=== PATIENT | female | born 1955 | race Caucasian/White ===

== ENCOUNTER 2018-10-19 15:55 | Inpatient (IN) | payer MEDICARE, OTHER ==
[2018-10-19] VITALS (8 sets, daily range): BP systolic 84–144; BP diastolic 49–131
[~2018-10-19] VITALS: Ht 160 cm; Wt 45.4 kg
[2018-10-19] MEDS: SODIUM CHLORIDE 0.9% 1000ML 1,000 ML IV SCH ×4 (05:00→19:50)
[2018-10-19] MEDS ORDERED: SODIUM CHLORIDE 0.9% 100 ML IV STA (16:06)
[2018-10-19] MEDS ORDERED: SODIUM CHLORIDE 0.9% 1000ML 1,000 ML IV SCH ×2 (16:15)
[2018-10-19] MEDS ORDERED: CEFEPIME 1GM/NS 0.9% 50 ML 50 ML IV NR (16:30)
[2018-10-19] MEDS ORDERED: VANCOMYCIN 1GM/NS 250 ML 250 ML IV ONE (17:00)
--- NOTE | 2018-10-19 17:07 | Diagnostic Imaging Report ---
EXAM: CHEST SINGLE (PORTABLE) DATE: 10/19/2018 4:06 PM INDICATION: Stomach distention COMPARISON: None FINDINGS: Lines and tubes: There is an apparent right PICC line which is coiled upon itself in the right upper chest, precise location uncertain. Cardiac silhouette is moderately enlarged. There is airspace opacity at the right lung base, likely representing consolidation and small pleural effusion. Upper abdomen unremarkable. No acute bony abnormality. The findings were discussed with Dr. Martinez in the emergency department on 10/19/2018 at 5:00 PM. IMPRESSION: 1. Likely right lower lobe pneumonia and small pleural effusion. 2. Right PICC is coiled in the right upper chest, precise location uncertain. Signed by: Dr. Howard Oh M.D. on 10/19/2018 5:04 PM
--- NOTE | 2018-10-19 17:09 | Diagnostic Imaging Report ---
EXAM: PELVIS AP 1-2 VIEWS DATE: 10/19/2018 4:06 PM INDICATION: Abdominal distention, decubitus ulcer COMPARISON: None FINDINGS: Single AP view of the pelvis shows no displaced fracture or dislocation. However, much of the sacrum is obscured by underpenetration related to overlying soft tissue. Soft tissues unremarkable. IMPRESSION: No acute bony abnormality. The sacrum is a specific site of concern, specific views of the sacrum including a lateral view may be helpful. Signed by: Dr. Howard Oh M.D. on 10/19/2018 5:06 PM
[2018-10-19 17:28] LABS: HEMATOCRIT 27.8 % (34.2-44.1); HEMOGLOBIN 9.1 g/dL (12.0-16.0); LYMPHOCYTES % 2.6 % (18.0-39.1); MEAN CORPUSCULAR HEMOGLOBIN 31.1 pg (28-32); MEAN CORPUSCULAR HGB CONC 32.7 g/dL (31-35); MEAN CORPUSCULAR VOLUME 94.9 fL (81-99); MONOCYTES % 2.2 % (4.4-11.3); NEUTROPHILS % 15.7 % (38.7-80.0); PLATELET COUNT 556 x10e3/uL (140-360); RED BLOOD COUNT 2.93 x10e6/uL (3.6-5.1); RED CELL DISTRIBUTION WIDTH 14.1 % (11.7-14.4)
--- NOTE | 2018-10-19 17:30 | NUR ---
PT NOTED TO HAVE B/L DRESSINGS TO BUTTOCKS FOR STAGE 4 PRESSURE ULCER, PT TURNED ON SIDE FOR COMFORT AND PRESSURE ULCER PREVENTION
--- NOTE | 2018-10-19 17:30 | NUR ---
Corinne rudd in ED - 10/19/18 at 2108 by ILIANA PT NOTED TO HAVE B/L DRESSINGS TO BUTTOCKS FOR STAGE 1 PRESSURE ULCER, PT TURNED ON SIDE FOR COMFORT AND PRESSURE ULCER PREVENTION.
[2018-10-19 17:42] LABS: SODIUM 128 mmol/L (136-145)
[2018-10-19 17:43] LABS: ALANINE AMINOTRANSFERASE 11 IU/L (0-55); ALBUMIN 2.1 g/dL (3.5-5.0); ALBUMIN/GLOBULIN RATIO 0.4 (0.8-2.0); ALKALINE PHOSPHATASE 159 IU/L (40-150); ANION GAP 18.6 mmol/L (8-16); BLOOD UREA NITROGEN 112 mg/dL (7-26); BUN/CREATININE RATIO 39 (6-25); CALCIUM 8.2 mg/dL (8.4-10.2); CARBON DIOXIDE 21 mmol/L (22-29); CHLORIDE 96 mmol/L (98-107); CREATINE KINASE 57 IU/L (29-168); CREATININE, SERUM 2.87 mg/dL (0.57-1.11); EST GLOMERULAR FILTRATION RATE 17 ML/MIN (60-); GLUCOSE 215 mg/dL (74-118)
[2018-10-19 17:45] LABS: POTASSIUM 7.6 mmol/L (3.5-5.1)
[2018-10-19] MEDS ORDERED: DEXTROSE 50% SYRINGE 50 ML IV STA (17:47)
[2018-10-19] MEDS ORDERED: ALBUTEROL SULF 0.083% NEB SOLN 3 ML NEB NEB STA (17:49)
[2018-10-19] MEDS ORDERED: CALCIUM GLUCONATE 10% INJ 0.465 MEQ/ML VIAL ONE (17:49)
[2018-10-19] MEDS ORDERED: DEXTROSE 50% SYRINGE 50 ML IV ONE (17:50)
[2018-10-19] MEDS ORDERED: SODIUM BICARBONATE 8.4% SYRING 50 ML ONE (17:50)
[2018-10-19] MEDS ORDERED: INSULIN REGULAR, HUMAN 100 UNIT/1 ML 3ML VIAL ONE (17:50)
[2018-10-19] MEDS ORDERED: SOD POLYSTYRENE SULFONATE SUSP 15 GM/60 ML BTL ONE (17:51)
[2018-10-19] MEDS ORDERED: SODIUM CHLORIDE 0.9% 100 ML ONE (17:51)
[2018-10-19 17:55] LABS: CLARITY,URINE CLOUDY (CLEAR); COLOR,URINE YELLOW (YELLOW); KETONES,URINE NEGATIVE (NEGATIVE); LEUKOCYTE ESTERASE ,URINE TRACE (NEGATIVE); NITRITE,URINE NEGATIVE (NEGATIVE); PROTEIN,URINE DIPSTICK NEGATIVE (NEGATIVE); URINE UROBILINOGEN 0.2 mg/dL (0.2 - 1)
[2018-10-19 17:56] LABS: BILIRUBIN,URINE NEGATIVE (NEGATIVE)
[2018-10-19 17:58] LABS: LIPASE < 4 U/L (8-78)
[2018-10-19] MEDS ORDERED: INSULIN REGULAR, HUMAN 100 UNIT/1 ML 3ML VIAL IV ONE (18:00)
[2018-10-19] MEDS ORDERED: CALCIUM GLUCONATE 10% INJ 4.65 MEQ in SODIUM CHLORIDE 0.9% 50ML 50 ML IV ONE (18:00)
[2018-10-19 18:01] LABS: BACTERIA,URINE MODERATE /HPF; EPITHELIAL CELLS,URINE MODERATE /LPF; RENAL EPITHELIAL CELLS,URINE FEW; WBC,URINE (MAN) 0-5 /HPF (0-5)
[2018-10-19] MEDS ORDERED: CEFEPIME HCL 1 GM VIAL IV SCH (18:15)
[2018-10-19] MEDS ORDERED: SOD POLYSTYRENE SULFONATE SUSP 15 GM/60 ML BTL PO NR (18:15)
--- NOTE | 2018-10-19 18:45 | NUR ---
PT ABD DISTENTION, FIRM STATES PAIN AND NOT VOIDED SINCE YESTERDAY. MD NOTIFIED AND WANTED GARDNER IMMEDIATELY. STERILE PROCEDURE FOLLOWED AND FORMED CHARTED AND CLAMPED OFF AT ONE LITER OUTPUT; PT STATES RELIEF, BROWN BEER COLORED URINE, LABIA MAJORA AND MINORA ENGORGED AND MD NOTIFIED. VSS AND ALLOWED REMAINDER OF URINE TO FOLLOW AND TOTAL OUTPT 1200CC. PT PREVIOUS STRAIGHT CATH FOR UA SAMPLE ON ARRIVAL WITH PT AMS AND OUTPT WAS 300CC AT THAT TIME. ONCE DISTENTION NOTED, ORDERED GARDNER. ABD SIZE DECREASED BY HALF. AWARE.
[2018-10-19] MEDS: VANCOMYCIN 1GM/NS 250 ML 250 ML IV SCH (19:41)
[2018-10-19] MEDS: CEFEPIME 1GM/NS 0.9% 50 ML 50 ML IV SCH (19:50)
--- NOTE | 2018-10-19 20:06 | Diagnostic Imaging Report ---
Examination: Single AP view of the chest. COMPARISON: None. INDICATION: Line placement DISCUSSION: Lines/tubes: Right IJ catheter with tip overlying the mid right atrium Lungs: Right pleural effusion with adjacent atelectasis/pneumonia. Central pulmonary venous congestion. Heart and mediastinum: The heart and the mediastinum are unremarkable. Bones and soft tissues: No acute bony abnormalities. IMPRESSION: Right PICC line overlying the mid right atrium Stable right pleural effusion with adjacent atelectasis/pneumonia Signed by: Dr. Odell Starr M.D. on 10/19/2018 8:03 PM
--- NOTE | 2018-10-19 20:50 | Diagnostic Imaging Report ---
Examination: Single AP view of the chest. COMPARISON: 10/19/2018 INDICATION: Check line DISCUSSION: Lines/tubes: Central venous catheter with tip overlying the low SVC. Lungs: Stable right effusion with adjacent atelectasis/pneumonia. Central venous congestion. Heart and mediastinum: The heart and the mediastinum are unremarkable. Bones and soft tissues: No acute bony abnormalities. IMPRESSION: 1. Central venous IJ catheter with tip overlying the low SVC Signed by: Dr. Odell Starr M.D. on 10/19/2018 8:47 PM
[2018-10-19] MEDS ORDERED: NOREPINEPHRINE 8 MG/D5W 250 ML 250 ML IV PRN (21:00)
[2018-10-19] MEDS ORDERED: BACTRIM DS TAB1 EACH PO (21:40)
[2018-10-19] MEDS ORDERED: ACETAMINOPHEN325 M1 PO (21:40)
[2018-10-19] MEDS ORDERED: ASPIRIN81 MG PO (21:40)
[2018-10-19] MEDS ORDERED: AMLODIPINE BESY10 MG PO (21:40)
--- NOTE | 2018-10-19 21:40 | NUR ---
Received to 191 from ER. Placed on EKG, pulse ox and NBP for monitoring. Pt confused and poor historian. Admission history done by medical record from [facility] (Formerly [facility]). Cleaned for smear bowel movement. Mary drsgs applied to sacrum unstageable ulcer and left hip stage 3 decub. IV NS @ 125 ml/hr.
[2018-10-19] MEDS ORDERED: LANTUS 3ML100 UNITS/ SQ (21:42)
[2018-10-19] MEDS ORDERED: CARVEDILOL3.125 MG PO (21:42)
[2018-10-19 21:52] LABS: ABG HCO3 21 mmol/L (23-28); ABG PCO2 41 mmHg (41-51); ABG PH 7.32 (7.31-7.41); ABG PO2 58 mmHg (80-105)
[2018-10-19] MEDS ORDERED: SENNA LAX8.6 MG PO (21:53)
[2018-10-19] MEDS ORDERED: RISPERIDONE1 MG PO (21:53)
[2018-10-19] MEDS ORDERED: ASCORBIC ACID500 MG PO (21:53)
[2018-10-19] MEDS ORDERED: LACTULOSE20 GM/30 M PO (21:53)
[2018-10-19] MEDS ORDERED: NOVOLOG100 UNIT/1 SQ (21:53)
[2018-10-19] MEDS ORDERED: VANCOMYCIN1 GM/250 M IV (21:53)
[2018-10-19] MEDS ORDERED: LYRICA50 MG PO (21:53)
[2018-10-19] MEDS ORDERED: MAGNESIUM OXID400 MG PO (21:53)
[2018-10-19] MEDS ORDERED: XARELTO10 MG PO (21:53)
[2018-10-19] MEDS ORDERED: ULTRAM50 MG PO (21:53)
--- NOTE | 2018-10-19 23:45 | NUR ---
Attempted to get vaccine history without success. Pt unsure. Attempted to call shelter without success.
[2018-10-20] VITALS (28 sets, daily range): BP systolic 83–120; BP diastolic 49–74
[2018-10-20] MEDS ORDERED: SODIUM CHLORIDE 0.9% 1000ML 1,000 ML ONE (04:28)
[2018-10-20] MEDS: SODIUM CHLORIDE 0.9% 1000ML 1,000 ML IV SCH ×3 (05:00→16:36)
--- NOTE | 2018-10-20 05:00 | NUR ---
More alert now. Able to answer all neuro questions. Dr. Case here. Awaiting lab results.
[2018-10-20 05:40] LABS: BASOPHILS % 0.1 % (0.0-1.0); HEMOGLOBIN 8.4 g/dL (12.0-16.0); LYMPHOCYTES # (AUTO) 2.6 (1.0-3.2); LYMPHOCYTES % 14.2 % (18.0-39.1); MEAN CORPUSCULAR HEMOGLOBIN 31.9 pg (28-32); MEAN CORPUSCULAR HGB CONC 32.3 g/dL (31-35); MEAN CORPUSCULAR VOLUME 98.9 fL (81-99); MONOCYTES # (AUTO) 1.7 (0.2-0.8); MONOCYTES % 9.5 % (4.4-11.3); NEUTROPHILS # (AUTO) 13.7 (2.1-6.9); NEUTROPHILS % 75.5 % (38.7-80.0); PLATELET COUNT 537 x10e3/uL (140-360); RED BLOOD COUNT 2.63 x10e6/uL (3.6-5.1); RED CELL DISTRIBUTION WIDTH 14.5 % (11.7-14.4)
[2018-10-20 07:18] LABS: ALBUMIN 1.8 g/dL (3.5-5.0); ALBUMIN/GLOBULIN RATIO 0.4 (0.8-2.0); CALCIUM 7.9 mg/dL (8.4-10.2); CREATININE, SERUM 1.95 mg/dL (0.57-1.11); MAGNESIUM 2.4 MG/DL (1.3-2.1)
[2018-10-20 07:49] LABS: ANION GAP 16.9 mmol/L (8-16)
[2018-10-20 07:53] LABS: POTASSIUM 5.9 mmol/L (3.5-5.1)
[2018-10-20] MEDS ORDERED: DEXTROSE 50% SYRINGE 50 ML IV PRN (08:00)
[2018-10-20] MEDS: VANCOMYCIN 1GM/NS 250 ML 250 ML IV SCH (08:03)
[2018-10-20] MEDS: CEFEPIME 1GM/NS 0.9% 50 ML 50 ML IV SCH (08:15)
[2018-10-20] MEDS ORDERED: SOD POLYSTYRENE SULFONATE SUSP 15 GM/60 ML BTL PO ONE (08:30)
--- NOTE | 2018-10-20 09:16 | NUR ---
WOUND CARE CONSULTATION INITIAL EVALUATION Patient admitted from [facility] to ER for Distended Abdomen and altered mental status. DX: Sepsis, AMS LABS: WBC 18.2 HGB8.4 HCT26 NEUT%75.[id number] Shook on case for IV ABX Management. X-ray- Pelvis - Inconclusive. -@ [facility]- Bone Biopsy performed and was + for Osteomyelitis. Wound Care Consulted For Sacral Ulcer and Left Hip Ulcers. PATIENT VISIT: Patient is pleasantly confused. Attempts to assist with redirection. Maximiliano Score = 12 Strict PUP Active Alternating Pressure Air Mattress in place and set to current patient weight - Distended Abdomen with Labia Swelling. - Sacral full thickness ulceration and palpable bone. Periwound edges are friable and denuded toward rectum. - Indwelling Avendano catheter in place - Left Hip - Partial thickness ulcer with 90 granulation and 10% slough and fibrin. - Mid Lower back- annular shaped purple non-blanching ulcer, detached skin with boggy base. - Bilateral Heels intact. - Onychogryphotic nails to bilateral hallux. - No Pressure ulcers to bilateral feet. IMPRESSION: - Left Hip- Stage III -Pressure Ulcer- Present On Admission - Sacral - Stage IV- Pressure Ulcer- Present On Admission. - Lumbar Mid Spine- Deep Tissue Injury- Present On Admission. RECOMMENDATION: 1. Left Hip- Stage III -Pressure Ulcer- Present On Admission -Cleanse wound with NS and 4x4 gauze - Apply Santyl and Cover with Pleated Xeroform Gauze and Cover with Allevyn Foam Sacrum Dressing Daily. 2. Sacral - Stage IV- Pressure Ulcer- Present On Admission.\ -Cleanse wound with NS and 4x4 gauze - Apply Santyl and Cover with Pleated Xeroform Gauze and Cover with Allevyn Foam Sacrum Dressing Daily. 3. Lumbar Mid Spine- Deep Tissue Injury- Present On Admission. -Cleanse wound with NS and 4x4 gauze - Apply Venelex and Cover with Allevyn Foam Sacrum Dressing Daily - Continue Alternating Pressure Air Mattress and settings according to patient current weight. - Bilateral Heel Protectors / Offload Heels with Pillows. - Turn and Reposition Every 2 Hours using turning clock schedule. DISCHARGE BARRIERS: - Back to [facility] with IV ABX -VS- SNF - VS LTAC. Thank you for consulting with Wound Care. Addendum: 10/20/18 at 0940 by Trino Contreras RN Amended: Marshal added.
[2018-10-20] MEDS: INSULIN LISPRO 100 UNIT/1 ML 3ML VIAL SQ SCH ×3 (12:28→21:27)
--- NOTE | 2018-10-20 13:42 | NUR ---
Nutrition Intervention Note RD Recommendation(s) for Physician: -Rec ADA 1800 as medically appropriate -Rec Glucerna BID to promote protein-calorie intake -Rec MVi w/minerals, Vit C 550mg BID, Zinc sulfate 220mg once a day for 10 days (to support wound healing) -Rec CT abdomen for abdominal distention Plan of Care: RD following, monitoring for tolerance and adequacy, ONS rec Nutrition reason for involvement: Nutrition Risk Trigger MST RD Assessment 10/20 Chart reviewed. 87yo F, who was admitted from snf for AMS. Pt was discussed during rounds. Kalexate was given for elevated potassium level. Wound care following for pressure wound. Renal function has improved. No on pressor. +NS and abx. Unable to obtain hx from pt due to AMS. Pt has some severe signs of muscle and fat loss per observation. Per RN Rama, pt was eating good this AM with ~75% meal intake. RD paged Dr. Case for orders at 1342. Will continue to monitor and follow. Principal Problems/Diagnoses: sepsis, AMS, stomach distention PMH: No H&P in chart GI: abdomen round, distended, tender, rigid, flatus present Skin: - Left Hip- Stage III -Pressure Ulcer- Present On Admission - Sacral - Stage IV- Pressure Ulcer- Present On Admission. - Lumbar Mid Spine- Deep Tissue Injury- Present On Admission. Labs: (10/20) Na 135 L, K 5.9 H, BUN 90 H, Creat 1.95 H, Glucose 192 212 H Meds: insulin, NaCl Ht: 63in Wt: 98lb BMI: 17.4kg/m2 IBW: 115lb Malnutrition Evaluation (10/20) The patient does not meet criteria for a specified degree of malnutrition at this time. Will re-evaluate at follow-up as appropriate. Energy intake: N/A Weight loss: N/A Fat loss: Severe hollow orbital region, protrusion of clavicle Muscle loss: Severe protrusion of clavicle and acromion process, depression of temporal Supporting Evidence: Fluid accumulation: unable to evaluate Functional Status: unable to evaluate Nutrition Prescription (Diet Order): cardiac diet Estimated Nutritional Needs: Calories: 1350 1575kcal(30-35kcal/kg/d) Weight used: CBW Protein: 68 90g (1.5-2g/kg/d) Weight used: CBW Diet Adequacy: Meeting calorie needs, Not meeting protein needs Diet Education Needs Assessment: Diet education indicated, but patient not appropriate for education at this time. Nutrition Care Level: high Nutrition Diagnosis: Increased protein needs related to altered skin integrity as evidenced by stage III L hip ulcer, stage IV sacral ulcer, and DTI on lumbar spine. Goal: Patient will meet 75-100% of estimated needs by follow up Progress: N/A Interventions: Carb-modified diet, Commercial beverage, Multivitamin/mineral supplement therapy, Collaboration with other providers Monitoring/Evaluation: Total energy intake, Total protein intake, Modified diet, Liquid supplement, Weight change, Labs Signed: Georgina Conroy MS, RD, LD
--- NOTE | 2018-10-20 13:50 | NUR ---
Telephone orders received from Dr. Case for diet change and MVi/mineral.
[2018-10-20] MEDS: ASCORBIC ACID 500 MG TAB PO SCH (16:36)
[2018-10-20] MEDS: MEROPENEM 500MG/ NS 50ML 50 ML IV SCH (16:36)
[2018-10-21] VITALS (29 sets, daily range): BP systolic 90–132; BP diastolic 55–69
[2018-10-21] MEDS: SODIUM CHLORIDE 0.9% 1000ML 1,000 ML IV SCH ×4 (02:50→23:03)
--- NOTE | 2018-10-21 05:46 | Diagnostic Imaging Report ---
Abdomen/KUB INDICATION: ^DISTENDED ABDOMEN ^[id number] ^0435 ^Y COMPARISON: Chest x-ray 10/19/2018. FINDINGS: Portable, supine image obtained at 0435 hours. Medical Devices: Multiple sutures across the upper abdomen Bowel: Multiple dilated small bowel loops measuring up to 3.9 cm. No pneumatosis. Mild burden of stool in the right colon and transverse colon. Free air: None Calcifications: None over the renal shadows or along the expected course of the ureters Organomegaly: None Lung bases: Small right pleural effusion Bones: Degenerative changes. Multiple untreated compression deformities of the thoracic and lumbar spine. IMPRESSION: Multiple dilated small bowel loops suggestive of partial small bowel obstruction. Signed by: Dr. Juanita Zavala MD on 10/21/2018 5:43 AM
[2018-10-21 06:25] LABS: BASOPHILS % 0.2 % (0.0-1.0); EOSINOPHILS # (AUTO) 0.1 (0.0-0.4); HEMATOCRIT 25.2 % (34.2-44.1); LYMPHOCYTES % 37.3 % (18.0-39.1); MEAN CORPUSCULAR HEMOGLOBIN 30.5 pg (28-32); MEAN CORPUSCULAR HGB CONC 31.7 g/dL (31-35); MEAN CORPUSCULAR VOLUME 96.2 fL (81-99); MONOCYTES # (AUTO) 1.4 (0.2-0.8); MONOCYTES % 10.8 % (4.4-11.3); NEUTROPHILS # (AUTO) 6.6 (2.1-6.9); NEUTROPHILS % 49.9 % (38.7-80.0); PLATELET COUNT 551 x10e3/uL (140-360); RED BLOOD COUNT 2.62 x10e6/uL (3.6-5.1); RED CELL DISTRIBUTION WIDTH 14.5 % (11.7-14.4)
[2018-10-21 06:45] LABS: ALBUMIN 1.6 g/dL (3.5-5.0); ALBUMIN/GLOBULIN RATIO 0.4 (0.8-2.0); ANION GAP 10.4 mmol/L (8-16); CALCIUM 7.8 mg/dL (8.4-10.2); CREATININE, SERUM 0.99 mg/dL (0.57-1.11); POTASSIUM 4.4 mmol/L (3.5-5.1)
[2018-10-21] MEDS: INSULIN LISPRO 100 UNIT/1 ML 3ML VIAL SQ SCH ×4 (07:14→21:16)
[2018-10-21] MEDS: ASCORBIC ACID 500 MG TAB PO SCH ×2 (08:39→16:39)
[2018-10-21] MEDS: BALSAM PERU/CASTOR OIL 60 GM OINT...G. TP SCH (08:39)
[2018-10-21] MEDS: ZINC SULFATE 220 MG CAP PO SCH (08:39)
[2018-10-21] MEDS: RIVAROXABAN 15 MG TABLET PO SCH ×2 (08:39→16:39)
[2018-10-21] MEDS: MULTIVITAMINS/MINERALS TAB PO SCH (08:39)
[2018-10-21] MEDS: MEROPENEM 500MG/ NS 50ML 50 ML IV SCH (08:39)
[2018-10-21] MEDS: COLLAGENASE 5 GM TUBE TOP SCH (08:39)
[2018-10-21] MEDS: CEFEPIME 1GM/NS 0.9% 50 ML 50 ML IV SCH ×2 (11:41→23:02)
[2018-10-21] MEDS ORDERED: MEROPENEM 1GM 0 ML IV ONE (11:47)
[2018-10-21] MEDS ORDERED: CEFTRIAXONE SOD 1 GM/NS 50 ML 50 ML IV ONE (11:48)
[2018-10-21] MEDS: METRONIDAZOLE 500MG/NS 100ML 100 ML IV SCH ×2 (13:25→21:18)
[2018-10-21] MEDS ORDERED: MEROPENEM 500MG 500 MG in SODIUM CHLORIDE 0.9% 50ML 50 ML IV SCH (14:00)
[2018-10-21] MEDS ORDERED: LORAZEPAM INJ 2 MG/ML VIAL IV PRN (20:30)
[2018-10-21] MEDS: RISPERIDONE 1 MG TAB PO SCH (21:15)
--- NOTE | 2018-10-21 22:30 | NUR ---
Pt received from ICU. Pt A&O 1-2 and in no apparent distress. Pt on room air and tele. All safety measures ensured, rich alarm on, and pt call rich near. Pt encouraged to use call rich for assistance.
--- NOTE | 2018-10-21 22:38 | NUR ---
Pt transferred to room 213. Report called to Eunice MISTRY. No complications noted upon transfer. Telemetry unit #12. Lights on, bed in lowest, side rail x2, bed alarm set, call light in reach, and oriented to call nurse for assist. Received by Janette MISTRY charge nurse.
[2018-10-22] VITALS (7 sets, daily range): BP systolic 107–125; BP diastolic 56–67
--- NOTE | 2018-10-22 04:00 | NUR ---
Pt given broth and water per request. Pt tolerated well.
[2018-10-22] MEDS: METRONIDAZOLE 500MG/NS 100ML 100 ML IV SCH ×3 (05:03→22:02)
[2018-10-22 06:05] LABS: BASOPHILS % 0.1 % (0.0-1.0); EOSINOPHILS # (AUTO) 0.3 (0.0-0.4); EOSINOPHILS % 1.8 % (0.0-6.0); HEMATOCRIT 25.6 % (34.2-44.1); HEMOGLOBIN 7.9 g/dL (12.0-16.0); LYMPHOCYTES # (AUTO) 5.3 (1.0-3.2); LYMPHOCYTES % 33.3 % (18.0-39.1); MEAN CORPUSCULAR HEMOGLOBIN 30.5 pg (28-32); MEAN CORPUSCULAR HGB CONC 30.9 g/dL (31-35); MEAN CORPUSCULAR VOLUME 98.8 fL (81-99); MONOCYTES % 12.9 % (4.4-11.3); NEUTROPHILS # (AUTO) 8.1 (2.1-6.9); NEUTROPHILS % 51.1 % (38.7-80.0); PLATELET COUNT 529 x10e3/uL (140-360); RED BLOOD COUNT 2.59 x10e6/uL (3.6-5.1); RED CELL DISTRIBUTION WIDTH 14.6 % (11.7-14.4)
[2018-10-22 06:27] LABS: ANION GAP 10.8 mmol/L (8-16); BLOOD UREA NITROGEN 43 mg/dL (7-26); BUN/CREATININE RATIO 61 (6-25); CALCIUM 7.7 mg/dL (8.4-10.2); CARBON DIOXIDE 20 mmol/L (22-29); CHLORIDE 111 mmol/L (98-107); EST GLOMERULAR FILTRATION RATE > 60 ML/MIN (60-); GLUCOSE 171 mg/dL (74-118); POTASSIUM 4.8 mmol/L (3.5-5.1); SODIUM 137 mmol/L (136-145)
--- NOTE | 2018-10-22 07:15 | NUR ---
RCD PT AT BED PT IS ALERT AND CONFUSED PT CRYING ON BED NO SIGNS OF ANY DISTRESS NOTED GARDNER DRAINING BY GRAVITY IV PATENT BED LOW AND LOCKED CALL LIGHT IN REACH
[2018-10-22] MEDS: INSULIN LISPRO 100 UNIT/1 ML 3ML VIAL SQ SCH ×4 (07:30→21:00)
[2018-10-22] MEDS: ASCORBIC ACID 500 MG TAB PO SCH ×2 (09:00→17:00)
[2018-10-22] MEDS: BALSAM PERU/CASTOR OIL 60 GM OINT...G. TP SCH (09:00)
[2018-10-22] MEDS: ZINC SULFATE 220 MG CAP PO SCH (09:00)
[2018-10-22] MEDS: RIVAROXABAN 15 MG TABLET PO SCH ×2 (09:00→17:00)
[2018-10-22] MEDS: MULTIVITAMINS/MINERALS TAB PO SCH (09:00)
[2018-10-22] MEDS: COLLAGENASE 5 GM TUBE TOP SCH (09:00)
[2018-10-22] MEDS: RISPERIDONE 1 MG TAB PO SCH ×3 (09:00→22:02)
--- NOTE | 2018-10-22 10:00 | NUR ---
NOTIFIED SARAH GARCIA PT HAVE ESBL AND MDRO IN THE WOUND
[2018-10-22 10:05] LABS: BAND NEUTROPHILS % (MANUAL) 5 %; LYMPHOCYTES % (MANUAL) 38 % (19-48); MONOCYTES % (MANUAL) 9 % (3.4-9.0); NEUTROPHILS % (MANUAL) 48 % (40-74)
[2018-10-22 10:06] LABS: RBC MORPHOLOGY COMMENT ABNORMAL
[2018-10-22 10:07] LABS: ANISOCYTOSIS S; HOWELL-JOLLY BODIES FEW; POIKILOCYTOSIS S
[2018-10-22] MEDS: SODIUM CHLORIDE 0.9% 1000ML 1,000 ML IV SCH ×2 (10:07→18:07)
[2018-10-22 10:08] LABS: PLATELET ESTIMATE SLIGHTLY INCREASED; PLATELET MORPHOLOGY COMMENT FEW GIANT
--- NOTE | 2018-10-22 11:00 | NUR ---
WHILE ASSESSMENT OF THE PT ABDOMEN SHOWS DISTENDED NO BOWEL SOUNDS PT ON ADA DIET NOTIFIED THE CHARGE NURSE SHE SAW THE PT AND PUT THE PT NPO AND PAGED DR Carol HARTMAN TO NOTIFY THAT
[2018-10-22] MEDS: CEFEPIME 1GM/NS 0.9% 50 ML 50 ML IV SCH (11:30)
--- NOTE | 2018-10-22 15:15 | NUR ---
NOTIFIED THE CHARGE NURSE HE DIDN'T CALL BACK SHE GAVE THE CELL NUMBER
--- NOTE | 2018-10-22 15:30 | NUR ---
AGAIN PAGED DR Carol HARTMAN IN CELL PHONE NUMBER THIS NUMBER WAS IN DIAGNOSTIC CENTRE
--- NOTE | 2018-10-22 16:10 | NUR ---
AGAIN PAGED TO DR Carol HARTMAN AND TALKED TO ANSWERING SERVICE
--- NOTE | 2018-10-22 17:22 | NUR ---
DR Carol HARTMAN RETURNED CALL GOT NEW ORDERS
--- NOTE | 2018-10-22 18:00 | NUR ---
14FR NG TUBE INSERTED IN TO LT NOSTRIL WAITING FOR KUB REPORT FOR THE POSITION
--- NOTE | 2018-10-22 18:42 | NUR ---
PT RESTING ON BED BED SIDE REPORT GIVEN TO ONCOMING NURSE
--- NOTE | 2018-10-22 18:50 | Diagnostic Imaging Report ---
Exam: KUB - 1 view Clinical History: Evaluate NG tube placement Comparison: KUB 10/21/2018. Findings: Interval placement of NG tube, the tip terminates in the stomach. However, the side-port is near the GE junction. Persistent mildly dilated small bowel loops with air seen in non-dilated colonic loops. Surgical clips are present in the upper abdomen. Small right pleural effusion with subsegmental atelectasis in the lower lungs bilaterally. Again noted are multiple compression deformities of the thoracic and lumbar spine. Diffuse osteopenia. Impression: NG tube terminates in the stomach, the side-port is near the GE junction. Suggest advancement by approximately 4 cm. Findings of partial small bowel obstruction. Small right pleural effusion with subsegmental atelectasis in the bilateral lower lobes. Signed by: Dr. Priscilla Pacheco MD on 10/22/2018 6:47 PM
--- NOTE | 2018-10-22 19:00 | NUR ---
GOT THE KUB REPORT FIXED NG TUBE IN POSITION AND WORKING AND CONNECTED TO LOW INTERMITTENT SUCTION
--- NOTE | 2018-10-22 19:24 | NUR ---
Report received and walking rounds complete. Pt resting in bed and in no apparent distress. Pt has NG tube to low int. suction. All safety measures ensured, bed alarm on, and call rich near.
--- NOTE | 2018-10-22 20:32 | NUR ---
NG tube irrigated. Pt tolerated well.
--- NOTE | 2018-10-22 23:01 | NUR ---
Pt has NG tube and continues to be non compliant with keeping her head elevated. Pt yells when turned and states that she doesn't want to have the head of her bed elevated. I explained to pt that she needs to have her head of bed elevated and have her neck center and straight to prevent aspiration and have NG tube work properly.
[2018-10-23] VITALS: BP 129/58
[2018-10-23] MEDS: CEFEPIME 1GM/NS 0.9% 50 ML 50 ML IV SCH ×3 (00:08→23:30)
--- NOTE | 2018-10-23 00:10 | NUR ---
Pt given full bed bath, tolerated well. NGT irrigated as well.
[2018-10-23] MEDS ORDERED: BISACODYL 10 MG SUPP PR ONE (00:15)
--- NOTE | 2018-10-23 00:47 | NUR ---
Dr. Carol Gale rounding; Orders given for pt to get Dulcolax 20mg suppository now and if no BM in 30-45mins then fleets enema. Before insertion of suppository pt was impacted and reported finding to .
--- NOTE | 2018-10-23 01:05 | NUR ---
Pt continues to ask for water and ice chips. Explained to pt that she cant have any due to having the NG tube and being NPO. Pt also asks for pain meds. Pt is confused and has no orders for pain meds.
--- NOTE | 2018-10-23 01:50 | NUR ---
Pt had small smear BM. Continued to perform some disimpaction. Will see if pt has another BM and if not will administer fleets enema to further assist with BM.
--- NOTE | 2018-10-23 02:25 | NUR ---
Pt still continues to lean her head to the side and move her head from pillows and wedges underneath her to elevated her head. Will continue to monitor pt and correct positioning as needed to prevent aspiration and NG tube malfunctioning.
--- NOTE | 2018-10-23 03:50 | NUR ---
Pt had another small smear BM. Pt states she feels "too weak" to push for BM. Told pt we would need to give her enema and disimpacted her and she yelled and cried that she "didn't want to have it done". Explained to pt that she would need to have it done so that her stomach would feel better. Pt stated she wants to rest and that she will try to go on her own. Advised pt I will check her again for BM and if no BM, I will need to administer enema. Pt verbalized understanding.
[2018-10-23 04:00] VITALS: BP 126/66
--- NOTE | 2018-10-23 04:15 | NUR ---
Pt NG tube irrigated. Pt tolerated well. Drainage properly flowing.
[2018-10-23] MEDS: SODIUM CHLORIDE 0.9% 1000ML 1,000 ML IV SCH ×3 (05:18→22:00)
[2018-10-23] MEDS ORDERED: SOD PHOSPHATE/SOD BIPHOSPHATE ENEMA 132 ML BTL PR ONE (06:00)
[2018-10-23] MEDS: METRONIDAZOLE 500MG/NS 100ML 100 ML IV SCH ×3 (06:07→21:49)
--- NOTE | 2018-10-23 06:08 | NUR ---
Pt had small soft BM but still slight impacted. Enema given and pt tolerated well.
[2018-10-23 06:15] LABS: BASOPHILS % 0.2 % (0.0-1.0); EOSINOPHILS # (AUTO) 0.3 (0.0-0.4); EOSINOPHILS % 1.9 % (0.0-6.0); HEMATOCRIT 24.9 % (34.2-44.1); HEMOGLOBIN 7.9 g/dL (12.0-16.0); LYMPHOCYTES # (AUTO) 4.6 (1.0-3.2); LYMPHOCYTES % 28.9 % (18.0-39.1); MEAN CORPUSCULAR HEMOGLOBIN 31.1 pg (28-32); MEAN CORPUSCULAR HGB CONC 31.7 g/dL (31-35); MONOCYTES # (AUTO) 1.8 (0.2-0.8); MONOCYTES % 11.1 % (4.4-11.3); PLATELET COUNT 541 x10e3/uL (140-360); RED BLOOD COUNT 2.54 x10e6/uL (3.6-5.1); RED CELL DISTRIBUTION WIDTH 14.7 % (11.7-14.4)
[2018-10-23 06:25] LABS: INR 1.35; PROTHROMBIN TIME 17.3 seconds (11.9-14.5)
[2018-10-23 06:34] LABS: ALANINE AMINOTRANSFERASE 9 IU/L (0-55); ALBUMIN 1.7 g/dL (3.5-5.0); ALBUMIN/GLOBULIN RATIO 0.5 (0.8-2.0); ALKALINE PHOSPHATASE 123 IU/L (40-150); ANION GAP 13.2 mmol/L (8-16); BLOOD UREA NITROGEN 29 mg/dL (7-26); BUN/CREATININE RATIO 50 (6-25); CARBON DIOXIDE 18 mmol/L (22-29); CHLORIDE 116 mmol/L (98-107); CREATININE, SERUM 0.58 mg/dL (0.57-1.11); EST GLOMERULAR FILTRATION RATE > 60 ML/MIN (60-); GLUCOSE 86 mg/dL (74-118); POTASSIUM 4.2 mmol/L (3.5-5.1); SODIUM 143 mmol/L (136-145)
--- NOTE | 2018-10-23 07:18 | Diagnostic Imaging Report ---
Exam: Abdominal film Clinical History: Distended abdomen Comparison: 10/22/2018 DISCUSSION: The patient is rotated to the right. When accounting for differences in technique and positioning, stable position of enteric tube with the tip projecting over the proximal stomach. Interval increased gaseous distention of the small bowel, with the largest loop now measuring approximately 4.2 cm. Gas is again noted in the large bowel and rectum. Multiple abdominal surgical clips and radiopaque suture material. No mass effect or organomegaly. Osteopenia with multilevel degenerative disc changes of the thoracolumbar spine. IMPRESSION: Stable position of enteric tube. As before, the side port projects over the GE junction and advancement is suggested. Slight interval progression of findings suggestive of partial small bowel obstruction. Lung bases are suboptimally evaluated on the current study secondary to patient rotation. Signed by: Dr. Chadwick Maqruez M.D. on 10/23/2018 7:15 AM
[2018-10-23] MEDS: INSULIN LISPRO 100 UNIT/1 ML 3ML VIAL SQ SCH ×4 (07:30→21:00)
[2018-10-23 08:20] VITALS: BP 115/52
[2018-10-23 08:30] LABS: EOSINOPHILS % (MANUAL) 1 % (0-7); LYMPHOCYTES % (MANUAL) 24 % (19-48); MONOCYTES % (MANUAL) 8 % (3.4-9.0); NEUTROPHILS % (MANUAL) 67 % (40-74)
[2018-10-23 08:31] LABS: ANISOCYTOSIS SLIGHT; PLATELET ESTIMATE MODERATELY INCREASED; PLATELET MORPHOLOGY COMMENT NORMAL; RBC MORPHOLOGY COMMENT NORMAL
[2018-10-23] MEDS: RISPERIDONE 1 MG TAB PO SCH ×2 (09:00→21:00)
[2018-10-23] MEDS: ASCORBIC ACID 500 MG TAB PO SCH ×2 (09:00→17:14)
[2018-10-23] MEDS: RIVAROXABAN 15 MG TABLET PO SCH ×2 (09:00→17:14)
--- NOTE | 2018-10-23 11:10 | NUR ---
Patient has pulled the NG tube out and is repeatedly asking for ice chips. Educated patient on remaining NPO. Paged Dr. Carol Gale. Awaiting call back.
[2018-10-23] MEDS ORDERED: MAGNESIUM HYDROXIDE 30 ML UDC PO ONE ×3 (12:30→15:00)
[2018-10-23 12:45] VITALS: BP 86/44
--- NOTE | 2018-10-23 14:14 | Consultation ---
DATE OF CONSULTATION: 10/20/2018 CONSULTATION REPORT HISTORY OF PRESENT ILLNESS: Ms. David is a 62-year-old female, shelter resident, who admitted to [facility] with a diagnosis of a sepsis. There are no notes available at this point. I called the shelter facility and discussed with the nurse who had the patient, this lady Ms. Brandt, has been battling sacral wound being seen by Dr. Pryor, the Wound Care at [facility]. The patient is status post biopsy of the sacral wound at the shelter by Dr. Pryor. Culture came back with MRSA. On 10/18/2018, the patient was started on antibiotics and placement of a midline treatment for osteomyelitis. After the biopsy came back positive, the patient had no diarrhea and no other complaints at that time prior to admission to [facility]. Per my discussion with the nurse at the shelter facility, the patient aspirated on her meal and that is the reason the patient was transferred to [facility] for evaluation treatment of possible aspiration pneumonia since the patient's O2 saturation dropped and their concern was aspiration pneumonia. Upon admission, her midline that was placed in at shelter was replaced with a central line. The patient was afebrile. White count was 20.66 with hemoglobin of 9.1, and platelet count of 556. Her sodium was 128 with potassium of 7.6. Her creatinine was 2.87. I have reviewed the shelter labs. The patient's creatinine level was 0.64 on 10/12/18. On at the shelter, her creatinine came back to 2.25 with a sodium of 129 with white blood count of 22. The patient now has distended abdomen with diarrhea. Infectious Disease consulted for the management of antibiotics. PAST MEDICAL HISTORY: Including hypertension, candidiasis, diabetes mellitus type 2, vitamin deficiency, psychosis, constipation, cellulitis, acute embolism, and thrombosis of the left lower extremity, and acute osteomyelitis of the sacral. ALLERGIES: THE PATIENT IS ALLERGIC TO PENICILLIN, MORPHINE, AND TETRACYCLINE. LABORATORY DATA: Available labs reviewed. White count has dropped down to 18.2 with a hemoglobin of 8.4 and platelet count of 537. Sodium has improved to 135 from 128, potassium improved to 5.9 from 7.6 with a creatinine of 1.95 from 2.87. Urine culture and blood culture are pending. Chest x-ray was done suggested likely right lower lobe pneumonia with small pleural effusion. Sacral pelvis x-ray was done showed no acute bony abnormality. Antibiotics noted, status post vancomycin x1 and she is on cefepime. REVIEW OF SYSTEMS: Alert and oriented, pleasant, no acute distress. Eating breakfast. PHYSICAL EXAMINATION: GENERAL: Alert and oriented. VITAL SIGNS: Temperature 97.8, pulse is 100, respirations 16, and blood pressure 103/56. CVS: S1-S2. CHEST: Decreased breath sounds. Equal expansion. No acute distress. ABDOMEN: Distended, soft, and nontender. Stool is liquid in the bed. HEENT: Moist. No pallor. No JVD. EXTREMITIES: Midline has been removed. Ascites dressed. Now the patient has central line. Weak sacral wound seen with wound care. Bone is palpable upon examination. Also has gluteal ulcerations and wounds. ASSESSMENT AND PLAN: This is a 62-year-old female from shelter with sepsis, acute renal failure, electrolyte abnormalities, severe leukocytosis, hypotensive, debilitated distended abdomen, diarrhea, hyperkalemia, hypertension, diabetes, osteomyelitis to sacral which was diagnosed with biopsy at the shelter per my discussion with the staff at the shelter, and severe debility. Case was discussed with Dr. Shook in detail. The patient was seen with the nurse and wound care, stool for C. difficile was sent, we changed antibiotics to meropenem and vancomycin. The patient is status post vancomycin x1. We will get vancomycin random. We stopped cefepime and tart meropenem. Await for C. difficile. Further management of this patient is based on daily findings on laboratory and physical examination. Thank you for this consult. Dictated By: Villa Joy PA-C (Al) Dictated by Villa Joy PA-C (Al) Fior Shook MD /SKYL /[id number]
[2018-10-23 16:17] VITALS: BP 92/52
--- NOTE | 2018-10-23 16:20 | NUR ---
SPOKE WITH OBINNA AT [facility], SHE GAVE PREVIOUS DRYWALL INSTALLER OF MS [facility] (PROB[facility]LY [facility]) [phone]. CALLED AND LEFT MESSAGE TO RETURN CALL. SHE STATES PT WAS RECEIVED 1 WEEK PRIOR FROM [facility]. SHE GOES ON TO STATE THAT THE PT HAS A DX OF UNSPECIFIED PSYCHOSIS BUT HAS NOT BEEN EVALUATED AT THE FACILITY OF YET FOR MEDICATIONS, HAS NOT HAD ANY SINCE BEFORE PRIOR HOSPITALIZATION. WAS STAYING IN [place] WITH POSSIBLE BOYFRIEND AND NOT WILLING TO SHARE DEMOGRAPHIC INFORMATION. HAVE REACHED OUT TO [facility]IOR HOSP[facility] TO SEE IF I CAN GET ANY FURTHER DEMOGRAPHICS. PT WILL BE ACCEPTED BACK AT [facility] WHEN READY FOR DISCHARGE.
[2018-10-23] MEDS: ZINC SULFATE 220 MG CAP PO SCH (17:14)
[2018-10-23] MEDS: MULTIVITAMINS/MINERALS TAB PO SCH (17:14)
[2018-10-23] MEDS: COLLAGENASE 5 GM TUBE TOP SCH (18:20)
[2018-10-23] MEDS: BALSAM PERU/CASTOR OIL 60 GM OINT...G. TP SCH (18:20)
--- NOTE | 2018-10-23 18:20 | NUR ---
Upon repositioning patient and doing dressing changes, patient's labia is swollen with pitting edema 3t along with the, hip and thigh area. Dr. Case was notified. No new orders received at this time. Patient has not had a BM today on day shift.
--- NOTE | 2018-10-23 19:20 | NUR ---
Patient visited in room during nursing rounds. Patient alert and oriented x1. Patient appear confused and unable to remember recent events. Pt on IVF (NS at 125ml/hr). Pt is NPO at this time. Abdomen distended and firm and awaiting on pt to have a bowel movement. Labia majora and minora are swollen and has pitting edema (Dr. Yancey aware). Avendano in place. Will monitor closely. Bed alarm active.
[2018-10-23 20:45] VITALS: BP 109/57
--- NOTE | 2018-10-23 23:00 | NUR ---
Dr. Gale arrived to the floor and visited pt in room. examined pt and found out that she just had a massive and loose bowel movement. still ordered to give 60ml of Milk of Magnesia to pt. Other orders given by . Pt scheduled for KUB in AM (10/24/18). Addendum: 10/24/18 at 0126 by Gui Márquez RN Dr. Gale arrived to the floor and visited pt in room. examined pt and found out that she just had a massive and loose bowel movement. still ordered to give 60ml of Milk of Magnesia to pt. aware abdomen appear quite distended but feels softer and not firm. Other orders given by . Pt scheduled for KUB in AM (10/24/18).
--- NOTE | 2018-10-23 23:01 | NUR ---
Dr. Aaron Gale ordered to advance pt diet from NPO to Clear Liquid. also ordered tylenol 650mg PO prn.
[2018-10-24] VITALS (10 sets, daily range): BP systolic 87–113; BP diastolic 51–62
[2018-10-24] MEDS ORDERED: MAGNESIUM HYDROXIDE 30 ML UDC PO ONE
[2018-10-24] MEDS ORDERED: MINERAL OIL 132 ML BTL PR PRN
[2018-10-24] MEDS: ACETAMINOPHEN 325 MG TAB PO PRN ×2 (00:40→09:31)
[2018-10-24] MEDS: SODIUM CHLORIDE 0.9% 1000ML 1,000 ML IV SCH ×3 (02:07→18:07)
--- NOTE | 2018-10-24 04:00 | NUR ---
Patient had another large loose bowel movement. Dressings, diapers and sheets were changed. Pt was cleaned well.
--- NOTE | 2018-10-24 05:00 | NUR ---
Right IJ suspected to be out and charge nurse (Clau) aware and suggested to notify Dr. Case.
--- NOTE | 2018-10-24 05:15 | NUR ---
Dr. Case on the unit and verbally notified of right IJ possibly being out of the site. MD aware and ordered stat portable CXR to check for placement. Dr. Case also ordered to consult IR for port placement if current port is not in place. MD notified patient had 2 large bowel movements since start of shift and that Dr. Philip Gale was aware and ordered KUB this morning.
--- NOTE | 2018-10-24 05:30 | NUR ---
Patient had another large and loose bowel movement. Diaper and linens changed. Patient was thoroughly cleaned.
[2018-10-24] MEDS: METRONIDAZOLE 500MG/NS 100ML 100 ML IV SCH ×3 (06:00→22:00)
[2018-10-24 06:42] LABS: BASOPHILS % 0.2 % (0.0-1.0); EOSINOPHILS # (AUTO) 0.3 (0.0-0.4); EOSINOPHILS % 1.6 % (0.0-6.0); HEMATOCRIT 27.2 % (34.2-44.1); HEMOGLOBIN 8.4 g/dL (12.0-16.0); LYMPHOCYTES # (AUTO) 5.6 (1.0-3.2); MEAN CORPUSCULAR HEMOGLOBIN 30.7 pg (28-32); MEAN CORPUSCULAR HGB CONC 30.9 g/dL (31-35); MEAN CORPUSCULAR VOLUME 99.3 fL (81-99); MONOCYTES # (AUTO) 2.4 (0.2-0.8); MONOCYTES % 13.1 % (4.4-11.3); NEUTROPHILS % 53.8 % (38.7-80.0); PLATELET COUNT 560 x10e3/uL (140-360); RED BLOOD COUNT 2.74 x10e6/uL (3.6-5.1); RED CELL DISTRIBUTION WIDTH 15.1 % (11.7-14.4)
--- NOTE | 2018-10-24 06:43 | NUR ---
Called and spoke with answering service for Dr. Ratliff to notify of new consult ordered by Dr. Case regarding SBO and decubitus ulcer. Awaiting on MD call back. Information to be passed on to dayshift RN.
[2018-10-24 07:13] LABS: ALANINE AMINOTRANSFERASE 10 IU/L (0-55); ALBUMIN 1.7 g/dL (3.5-5.0); ALBUMIN/GLOBULIN RATIO 0.5 (0.8-2.0); ALKALINE PHOSPHATASE 137 IU/L (40-150); ANION GAP 12.2 mmol/L (8-16); BLOOD UREA NITROGEN 21 mg/dL (7-26); BUN/CREATININE RATIO 37 (6-25); CALCIUM 8.3 mg/dL (8.4-10.2); CARBON DIOXIDE 20 mmol/L (22-29); CHLORIDE 114 mmol/L (98-107); CREATININE, SERUM 0.57 mg/dL (0.57-1.11); EST GLOMERULAR FILTRATION RATE > 60 ML/MIN (60-); GLUCOSE 84 mg/dL (74-118); POTASSIUM 4.2 mmol/L (3.5-5.1); SODIUM 142 mmol/L (136-145)
[2018-10-24] MEDS: INSULIN LISPRO 100 UNIT/1 ML 3ML VIAL SQ SCH ×4 (07:30→21:00)
--- NOTE | 2018-10-24 07:34 | Diagnostic Imaging Report ---
Abdomen, one view. History: <Abdominal pain>. Comparison: 10/23/2018 Findings: The intestinal gas pattern again reveals small bowel dilatation not significantly changed. There is air within a nondistended colon. There no masses or abnormal calcifications. Generalized haze of the abdomen is suggestive of ascites. The osseous structures reveals sclerosis at the symphysis pubis. IMPRESSION: Small bowel dilatation not significantly changed is compatible with partial small bowel obstruction. Signed by: Dr. Rodrigue Henriquez DO on 10/24/2018 7:30 AM
--- NOTE | 2018-10-24 07:38 | Diagnostic Imaging Report ---
EXAM: CHEST SINGLE (PORTABLE), AP Portable DATE: 10/24/2018 Time stamp on exam: 6:49 AM INDICATION: Respiratory distress COMPARISON: 10/19/2018 FINDINGS: LINES/TUBES: Right IJ central line has been withdrawn and is near completely out. LUNGS: Unchanged pulmonary opacities with mild pulmonary vascular congestion. PLEURA: Right pleural effusion. HEART AND MEDIASTINUM: Normal size and contour. BONES AND SOFT TISSUES: No acute findings. IMPRESSION: 1. Unchanged pulmonary opacities and pulmonary vascular congestion. 2. Right IJ central line is near completely out. Signed by: Dr. Rodrigue Henriquez DO on 10/24/2018 7:34 AM
--- NOTE | 2018-10-24 07:45 | NUR ---
Notified Dr. Case that CXR results show central line is almost completely out. Orders received to remove central line and place peripheral line.
[2018-10-24] MEDS ORDERED: DIATRIZOATE MEGL/DIATRIZOA SOD 30 ML BTL PO ONE (08:10)
[2018-10-24 09:17] LABS: EOSINOPHILS % (MANUAL) 3 % (0-7); HYPOCHROMASIA SLIGHT; LYMPHOCYTES % (MANUAL) 26 % (19-48); METAMYELOCYTES % (MANUAL) 1 % (0-0); MONOCYTES % (MANUAL) 5 % (3.4-9.0); MYELOCYTES % (MANUAL) 1 % (0-0); NEUTROPHILS % (MANUAL) 64 % (40-74); PLATELET ESTIMATE SLIGHTLY INCREASED
[2018-10-24 09:18] LABS: PLATELET MORPHOLOGY COMMENT NORMAL; RBC MORPHOLOGY COMMENT NORMAL
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
[2018-10-24] MEDS: MULTIVITAMINS/MINERALS TAB PO SCH (09:31)
[2018-10-24] MEDS: RIVAROXABAN 15 MG TABLET PO SCH ×2 (09:31→17:48)
[2018-10-24] MEDS: ASCORBIC ACID 500 MG TAB PO SCH ×2 (09:31→17:48)
[2018-10-24] MEDS: ZINC SULFATE 220 MG CAP PO SCH (09:31)
[2018-10-24] MEDS: RISPERIDONE 1 MG TAB PO SCH ×2 (09:31→21:00)
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
--- NOTE | 2018-10-24 10:14 | NUR ---
Central line removed from right neck with tip intact, dressing applied to site. New IV placed to right ac
--- NOTE | 2018-10-24 10:14 | NUR ---
Notified radiology department that patient has a new IV for ct abd/pelvis
--- NOTE | 2018-10-24 11:18 | NUR ---
Patient left the floor for CT
[2018-10-24] MEDS: CEFEPIME 1GM/NS 0.9% 50 ML 50 ML IV SCH ×2 (12:00→23:30)
[2018-10-24] MEDS ORDERED: HALOPERIDOL LACTATE 5 MG/ML VIAL IM PRN (13:15)
[2018-10-24] MEDS ORDERED: RISPERIDONE 0.5 MG TAB PO PRN (13:15)
[2018-10-24] MEDS ORDERED: LORAZEPAM INJ 2 MG/ML VIAL IV PRN (13:30)
[2018-10-24] MEDS ORDERED: SODIUM CHLORIDE 0.9% 50ML 50 ML ONE (14:14)
[2018-10-24] MEDS ORDERED: IOPAMIDOL 370 MG/ML 200 ML INFUS..BTL INJ ONE (14:15)
--- NOTE | 2018-10-24 14:36 | Diagnostic Imaging Report ---
EXAM: CT Abdomen and Pelvis WITH contrast INDICATION: Abdominal distention COMPARISON: KUB, 10/24/2018 TECHNIQUE: Abdomen and pelvis were scanned utilizing a multidetector helical scanner from the lung base to the pubic symphysis after administration of IV contrast. Coronal and sagittal reformations were obtained. Routine protocol was performed. Scan was performed when during portal venous phase. Dose modulation, iterative reconstruction, and/or weight based adjustment of the mA/kV was utilized to reduce the radiation dose to as low as reasonably achievable. IV CONTRAST: 100 mL of Isovue-370 ORAL CONTRAST: 30 cc Gastrografin RADIATION DOSE: Total DLP: 299.73 mGy*cm Estimated effective dose: (DLP x 0.015 x size factor) mSv COMPLICATIONS: None FINDINGS: LINES and TUBES: There is a Avendano catheter extending into the urinary bladder. LOWER THORAX: There is atelectasis and trace pleural fluid at each lung base. Consolidation with air bronchograms at the right lung base. Heart size normal. HEPATOBILIARY: There is a 1.6 cm lucency in the right lobe of the liver (segment 7, series 2 image 28). No biliary ductal dilation. There is mild nonspecific periportal edema. GALLBLADDER: There is mild distention of the gallbladder with no radiopaque calculi or wall thickening. SPLEEN: The spleen is not visualized and may be surgically absent or atrophic. PANCREAS: The body and tail of the pancreas are either atrophic or surgically absent. ADRENALS: No adrenal nodules KIDNEYS/URETERS: Kidneys enhance symmetrically. No hydronephrosis. No cystic or solid mass lesions. No stones. GI TRACT: Although enteric contrast was provided to the patient, no significant volume of enteric contrast is seen within the GI tract. There is extensive small bowel dilatation with loops measuring up to 3.6 cm diameter. Dilated small bowel extends to the ileum without a specific transition point identified. There is wall thickening of small bowel loops in the jejunum. Moderate fluid and stool is seen throughout the colon. There is sigmoid diverticulosis with no CT evidence for acute diverticulitis. Appendix is not specifically visualized. PELVIC ORGANS/BLADDER: Urinary bladder contains a Avendano catheter and is decompressed. No discrete abnormal mass or fluid collection in the pelvis. LYMPH NODES: No dominant lymph node mass is seen in the abdomen, retroperitoneum or pelvis. VESSELS: Abdominal aorta, IVC and portal system unremarkable. There are calcified plaques of the aortoiliac vessels. Celiac, SMA and HUSEYIN are patent. There is contrast reflux from the right atrium into hepatic veins. PERITONEUM / RETROPERITONEUM: The mesenteric fat is edematous. No pneumoperitoneum. There are numerous surgical clips in the midabdomen cephalad to the pancreatic head in the periportal area. BONES: There are numerous vertebral body compressions including T7-8, T10-11, L1 and L3. There is lucency in the T12 vertebral body which may represent a destructive lesion or marked osteopenia. SOFT TISSUES: Superficial surrounding soft tissue shows extensive subcutaneous edema. There is soft tissue air posterior to the sacrum which may be related to ulcer. Sutures are seen in the anterior abdominal wall. IMPRESSION: 1. There is dilatation of small bowel loops in the jejunum and ileum. Findings suggest small bowel obstruction in the distal ileum. Specific etiology is not determined. There is wall thickening of jejunal loops which may be related to enteritis or generalized edema. 2. There is generalized edema of the subcutaneous soft tissues and mesentery. 3. Atelectasis in the lower lobes, with right lower lobe consolidation and air bronchograms. 4. Indeterminate lucency in the right lobe of the liver, likely representing a cyst. 5. The body and tail of the pancreas, as well as the spleen, are not visualized and may be surgically absent. There are nearby surgical clips. Recommend correlation with surgical history. 6. Likely decubitus ulcer over the distal sacrum. 7. There are multiple age-indeterminate vertebral body compressions. There is localized lucency in the T12 vertebral body suggesting possible destructive lesion. This may be further characterized with MRI of the thoracolumbar spine. Staff: Adriano Signed by: Dr. Howard Oh M.D. on 10/24/2018 2:33 PM
--- NOTE | 2018-10-24 15:06 | Consultation ---
DATE OF CONSULTATION: 10/24/2018 HISTORY OF PRESENT ILLNESS: The patient is a 62-year-old female, who [facility]. She was apparently admitted to the hospital with altered mental status, has had findings suggestive of partial small bowel obstruction and also sacral ulcer. The patient says she has abdominal pain, but she does not complain of any nausea or vomiting at this time. Nurses report she had four bowel movements during the night. Most recent x-ray revealed dilated small bowel, which is increased somewhat from the previous x-rays. The patient has had previous surgeries, but the details are not available. In the chart, it says there was section. PAST MEDICAL HISTORY: Significant for her surgery as stated above. She has a history of type 2 diabetes, hypertension, and bipolar disorder. MEDICATIONS: In the [facility]iary are listed in the chart. ALLERGIES: PENICILLIN, MORPHINE, AND TETRACYCLINE. FAMILY HISTORY: Noncontributory. SOCIAL HISTORY: The patient smokes cigarettes. Does not drink alcohol. REVIEW OF SYSTEMS: Not available. PHYSICAL EXAMINATION: GENERAL: The patient is alert, does not answer questions appropriately. VITAL SIGNS: Normal. She is not tachycardic. HEENT: There is no scleral icterus. NECK: No masses. LUNGS: Equal breath sounds, are clear bilaterally. CARDIAC: Regular rate and rhythm. ABDOMEN: Has healed lower midline wound. It is distended and diffusely tender. There is no definite mass or questionable signs of peritonitis. There is no organomegaly. EXTREMITIES: Somewhat cachetic and there is an ulcer in the sacrum. LAB TESTS: White blood count today is 18.6, hemoglobin 8.4, and hematocrit 27. Chemistries reveal bicarbonate level of 20, BUN 21, creatinine 0.57. Albumin is low at 1.7. ASSESSMENT: A 62-year-old female with abdominal distention, tenderness, and findings on x-ray suggest a partial small bowel obstruction, also could represent ileus. The patient is refusing NG tube, which she previously have pulled out. PLAN: To evaluate further with CT scan of abdomen and pelvis. Recommend keeping the patient n.p.o. on IV fluids as have been ordered. Thank you for asking me to see Ms. David. MD BRIAN Ann/BENSON Lang: 10/24/2018 07:38:25 /[id number]
--- NOTE | 2018-10-24 16:02 | NUR ---
Notified Dr. Ratliff of CT abdomen results. No new orders at this time. Paged Dr. Carol Gale to notify of CT results. Awaiting call back
--- NOTE | 2018-10-24 16:15 | NUR ---
Notified Dr. Carol Gale about CT abdomen results. New order received.
[2018-10-24] MEDS ORDERED: MINERAL OIL 132 ML BTL PR NR (16:30)
--- NOTE | 2018-10-24 17:43 | NUR ---
Patient had large BM prior to receiving fleet enema
[2018-10-24] MEDS: BALSAM PERU/CASTOR OIL 60 GM OINT...G. TP SCH (17:47)
[2018-10-24] MEDS: COLLAGENASE 5 GM TUBE TOP SCH (17:48)
--- NOTE | 2018-10-24 19:22 | NUR ---
Patient received sitting up in bed. AAO x 2. No complaints of pain. No signs of respiratory distress. Avendano catheter draining pale clear yellow urine. Fall precautions implemented. Patient instructed to call for assistance when needed. Call light within reach.
--- NOTE | 2018-10-24 19:37 | NUR ---
Nutrition Intervention Note RD Recommendation(s) for Physician: - Rec ADAT to goal of ADA 1800 as medically appropriate - Rec Glucerna BID to promote protein-calorie intake when diet advanced - Rec continue MVi w/minerals, Vit C 550mg BID Plan of Care: RD following, monitoring for tolerance and adequacy, ONS rec Nutrition reason for involvement: Follow up RD Assessment 10/24: Pt seen for follow up. Pt confused at time of visit. Pt now on CL diet, CT of abdomen this am- pt with bowel obstruction per RN. Previously eating 75-100% of meals prior to diet downgrade. Will monitor and continue to follow. 10/20 Chart reviewed. 87yo F, who was [facility]. Pt was discussed during rounds. Kalexate was given for elevated potassium level. Wound care following for pressure wound. Renal function has improved. No on pressor. +NS and abx. Unable to obtain hx from pt due to AMS. Pt has some severe signs of muscle and fat loss per observation. Per RN Rama, pt was eating good this AM with ~75% meal intake. RD paged Dr. Case for orders at 1342. Will continue to monitor and follow. Principal Problems/Diagnoses: sepsis, AMS, stomach distention PMH: No H&P in chart GI: LBM 10/23 Skin: - Left Hip- Stage III -Pressure Ulcer- Present On Admission - Sacral - Stage IV- Pressure Ulcer- Present On Admission. - Lumbar Mid Spine- Deep Tissue Injury- Present On Admission. Labs: 10/24: na 142, K 4.2, BUN 21, Cr 0.57, Gluc 84 (10/20) Na 135 L, K 5.9 H, BUN 90 H, Creat 1.95 H, Glucose 192 212 H Meds: vitamin C, lispro, abx, risperdal, MVI with minerals Ht: 63in Wt: 98lb BMI: 17.4kg/m2 IBW: 115lb Malnutrition Evaluation (10/20) The patient does not meet criteria for a specified degree of malnutrition at this time. Will re-evaluate at follow-up as appropriate. Energy intake: N/A Weight loss: N/A Fat loss: Severe hollow orbital region, protrusion of clavicle Muscle loss: Severe protrusion of clavicle and acromion process, depression of temporal Supporting Evidence: Fluid accumulation: unable to evaluate Functional Status: unable to evaluate Nutrition Prescription (Diet Order): cardiac diet Estimated Nutritional Needs: Calories: 1350 1575kcal (30-35kcal/kg/d) Weight used: CBW Protein: 68 90g (1.5-2g/kg/d) Weight used: CBW Diet Adequacy: Not meeting calorie needs, Not meeting protein needs Diet Education Needs Assessment: Diet education indicated, but patient not appropriate for education at this time. Nutrition Care Level: high Nutrition Diagnosis: Increased protein needs related to altered skin integrity as evidenced by stage III L hip ulcer, stage IV sacral ulcer, and DTI on lumbar spine. Goal: Patient will meet 75-100% of estimated needs by follow up Progress: Not progressing Interventions: Carb, fiber modified diet, Commercial beverage, Multivitamin/mineral supplement therapy, Collaboration with other providers Monitoring/Evaluation: Total energy intake, Total protein intake, Modified diet, Liquid supplement, Weight change, Labs Signed: Antonia Thomas RD, LD, [facility]
--- NOTE | 2018-10-24 21:07 | Consultation ---
DATE OF CONSULTATION: 10/24/2018 Psychiatric Consultation REASON FOR CONSULTATION: To evaluate patient's psychosis. HISTORY OF PRESENT ILLNESS: The patient is a 62-year-old female admitted to the hospital for sepsis, altered mental status. Psychiatric consultation is called to evaluate the patient's psychosis. As per medical record, the patient was admitted to [facility] from alf for sepsis. Her medical condition includes hypertension, diabetes, vitamin deficiencies, psychosis, constipation, cellulitis, acute embolism, thrombosis of the left lower extremity, acute osteomyelitis. Upon evaluation today, the patient was found to be in the room in the isolation. She is alert, awake, and oriented to self, place and time. She appears to have some memory issues, does not remember that she was at [facility] and was treated by Dr. Harry. This information was obtained from the Case Management. The patient claims she is feeling sad and she wants to go home and also due to her medical condition. She denies any anxiety. She denies any hallucination. She denies any suicidal ideation. She is paranoid, believes a man she has been living with has been trying to kill her and feeding her with hair ball. This information was also given by case management and nursing staff. The patient complained of poor sleep, but denies any appetite problems. She appears to be thin. As per nursing staff, the patient has been vehemently irritable, but not combative. PAST PSYCHIATRIC HISTORY: The patient denies any past psychiatric history although as per record the patient has history of bipolar and schizophrenia. The patient denies past suicide attempts. She denies alcohol or drug use. SOCIAL HISTORY: Denies social history. The patient has been living in alf. MENTAL STATUS EXAM: The patient is an elderly female. She is alert, awake, and oriented to situation. Her mood is labile. She denies any suicidal or homicidal ideation. Denies any hallucination. Affect is congruent with mood. Psychomotor status is labile. Insight and judgment are limited. Thought process is disorganized. Thought content is delusions and paranoia. CURRENT MEDICATION: 1. Tylenol. 2. Risperdal 1 mg p.o. q.12 hours. 3. Tegretol. 4. Zinc sulfate. 5. Vitamin C. 6. Multivitamin. 7. Cefepime. 8. Sodium chloride. 9. Collagenase. 10. Ativan 0.5 mg IV q.4h p.r.n. 11. Metronidazole. 12. Insulin. 13. Mineral oil. 14. Dextrose. LABORATORY DATA: Current Labs: WBC 18.61, RBC 2.74, hemoglobin 8.4, hematocrit 27.2, platelets 560. Chemistry; sodium 132, potassium 4.2, chloride 114, CO2 20, BUN 21, creatinine 0.57. AST 20, ALT 10. ASSESSMENT: Schizoaffective disorder, bipolar type. PLAN: 1. Continue with risperidone 1 mg p.o. q.12h. 2. Change Ativan 0.5 mg IV q.4 hours p.r.n. to 0.5 mg IV q.8 hours p.r.n. 3. Add Risperdal 0.5 mg p.o. q.6 hours p.r.n. 4. Add Haldol 2 mg IM q.6 hours p.r.n. 5. Monitor for agitation, psychosis. 6. Discussed with nursing staff. Thank you for this consultation. Dictated by Tracy Garcia PA-C Eliza Archer MD QTV/MODL /[id number]
[2018-10-25] VITALS (8 sets, daily range): BP systolic 90–108; BP diastolic 51–62
[2018-10-25] MEDS: ACETAMINOPHEN 325 MG TAB PO PRN ×2 (00:50→06:11)
--- NOTE | 2018-10-25 02:00 | NUR ---
Wound dressing to sacrum (Stage IV pressure ulcer) performed per MD's orders. Patient tolerated well.
[2018-10-25] MEDS: SODIUM CHLORIDE 0.9% 1000ML 1,000 ML IV SCH ×3 (05:00→18:07)
[2018-10-25 05:50] LABS: BASOPHILS % 0.1 % (0.0-1.0); EOSINOPHILS # (AUTO) 0.5 (0.0-0.4); EOSINOPHILS % 3.2 % (0.0-6.0); HEMATOCRIT 25.3 % (34.2-44.1); HEMOGLOBIN 7.8 g/dL (12.0-16.0); LYMPHOCYTES # (AUTO) 4.7 (1.0-3.2); LYMPHOCYTES % 28.1 % (18.0-39.1); MEAN CORPUSCULAR HEMOGLOBIN 30.4 pg (28-32); MEAN CORPUSCULAR HGB CONC 30.8 g/dL (31-35); MEAN CORPUSCULAR VOLUME 98.4 fL (81-99); MONOCYTES % 12.1 % (4.4-11.3); NEUTROPHILS # (AUTO) 9.3 (2.1-6.9); NEUTROPHILS % 55.5 % (38.7-80.0); PLATELET COUNT 523 x10e3/uL (140-360); RED BLOOD COUNT 2.57 x10e6/uL (3.6-5.1); RED CELL DISTRIBUTION WIDTH 15.3 % (11.7-14.4)
[2018-10-25] MEDS: METRONIDAZOLE 500MG/NS 100ML 100 ML IV SCH ×3 (05:58→22:04)
[2018-10-25 06:07] LABS: ALANINE AMINOTRANSFERASE 10 IU/L (0-55); ALBUMIN 1.6 g/dL (3.5-5.0); ALBUMIN/GLOBULIN RATIO 0.5 (0.8-2.0); ALKALINE PHOSPHATASE 125 IU/L (40-150); ANION GAP 8.9 mmol/L (8-16); BLOOD UREA NITROGEN 14 mg/dL (7-26); BUN/CREATININE RATIO 28 (6-25); CALCIUM 8.2 mg/dL (8.4-10.2); CARBON DIOXIDE 22 mmol/L (22-29); CHLORIDE 112 mmol/L (98-107); EST GLOMERULAR FILTRATION RATE > 60 ML/MIN (60-); GLUCOSE 95 mg/dL (74-118); POTASSIUM 3.9 mmol/L (3.5-5.1); SODIUM 139 mmol/L (136-145)
--- NOTE | 2018-10-25 06:24 | Diagnostic Imaging Report ---
EXAM: ABDOMEN 2 VIEW, DATE: 10/25/2018 5:00 AM INDICATION: Sepsis. Bowel obstruction. COMPARISON: . FINDINGS: LINES/TUBES: None BOWEL PATTERN: Redemonstration of multiple dilated stacked small bowel bowel loops suggestive of obstruction versus severe ileus. Gas within the rectum. SOFT TISSUES: Multiple clips projected on the upper abdomen. LUNG BASES: Increased density in the lower right hemithorax suggestive of right pleural effusion, right lower lobe consolidation. Left basilar subsegmental atelectasis. BONES: No acute osseous abnormality. IMPRESSION: No interval change in diffuse small bowel dilatation. Signed by: Dr. Irene Wetzel M.D. on 10/25/2018 6:21 AM
[2018-10-25 06:31] LABS: FERRITIN 213.36 ng/mL (4.63-204.00)
--- NOTE | 2018-10-25 07:18 | NUR ---
Walking round done. Shift report given to oncoming nurse.
[2018-10-25] MEDS: INSULIN LISPRO 100 UNIT/1 ML 3ML VIAL SQ SCH ×4 (07:30→21:00)
[2018-10-25 07:35] LABS: FOLATE 14.5 ng/mL (7.0-15.4)
--- NOTE | 2018-10-25 08:15 | NUR ---
PAGED DR MELGAR AND NOTIFIED THE HB 7.8 HE SAID CONTINUE TO WATCHING PATIENT
[2018-10-25 08:44] LABS: EOSINOPHILS % (MANUAL) 5 % (0-7); LYMPHOCYTES % (MANUAL) 24 % (19-48); METAMYELOCYTES % (MANUAL) 2 % (0-0); MONOCYTES % (MANUAL) 9 % (3.4-9.0); NEUTROPHILS % (MANUAL) 60 % (40-74)
[2018-10-25 08:45] LABS: ANISOCYTOSIS SLIGHT; HYPOCHROMASIA MODERATE; PLATELET MORPHOLOGY COMMENT NORMAL; RBC MORPHOLOGY COMMENT NORMAL
[2018-10-25 08:46] LABS: PLATELET ESTIMATE SLIGHTLY INCREASED
[2018-10-25] MEDS: RIVAROXABAN 15 MG TABLET PO SCH ×2 (09:00→17:00)
[2018-10-25] MEDS: ZINC SULFATE 220 MG CAP PO SCH (09:00)
[2018-10-25] MEDS: MULTIVITAMINS/MINERALS TAB PO SCH (09:00)
[2018-10-25] MEDS: BALSAM PERU/CASTOR OIL 60 GM OINT...G. TP SCH (09:00)
[2018-10-25] MEDS: RISPERIDONE 1 MG TAB PO SCH ×2 (09:00→22:04)
[2018-10-25] MEDS: ASCORBIC ACID 500 MG TAB PO SCH ×2 (09:00→17:00)
[2018-10-25] MEDS: COLLAGENASE 5 GM TUBE TOP SCH (09:00)
[2018-10-25] MEDS: CEFEPIME 1GM/NS 0.9% 50 ML 50 ML IV SCH ×2 (11:30→23:30)
--- NOTE | 2018-10-25 13:46 | Progress Note ---
DATE: 10/25/2018 Psychiatric Progress Note SUBJECTIVE: The patient is evaluated and events noted. The patient is in the room. She is alert, awake and oriented to self and place. She is still delusional and paranoid. She is calm and cooperative. She is not getting p.r.n. IM medication. She is currently n.p.o. and has not received her Risperdal. She is only on IV medication at this time. As per pharmacy, Risperdal M-Tab formulary is not available. She is not getting any medication at this time. ASSESSMENT: Multiple affective disorder, bipolar type. PLAN: Plan is to continue 1. Risperdal 1 mg p.o. q.12h. 2. Continue risperidone 0.5 mg p.o. q.6 hours p.r.n. 3. Continue with Ativan 0.5 mg IV q.8 hours p.r.n. 4. Continue Haldol 2 mg IM q.6 hours p.r.n. 5. According to nutrition note the patient is n.p.o. due to bowel obstruction from CT of the abdomen done on October 24. Dictated by Tracy Garcia PA-C Eliza Archer MD QTV/MODL /[id number]
--- NOTE | 2018-10-25 17:14 | NUR ---
WOUND CARE - PUP SCREEN Maximiliano Score = 13 ACTIVE PUP = Moderate LOS = 5 Days Age = 62 Specialty Alternating Pressure Air Mattress in Place set to Patient Current Weight. HOB < or = 30 Degrees : Yes Patient Position= Back Mobility Concerns: Bed bound. Total Assist to turn and reposition. Multiple Pressure Ulcers Present on Admission. Sacral Stage IV, Left Hip Stage III, Mid Spine DTI. *Last WC Visit 10/20/18 for WC Consult - active wound care treatments in place. RECOMMENDATIONS:(Continue Active Wound Care Treatment Orders ) Addendum: 10/25/18 at 1721 by Trino Contreras RN Amended: Links added.
--- NOTE | 2018-10-25 19:03 | NUR ---
PT RESTING ON BED. BEDSIDE REPORT GIVEN TO THE ONCOMING NURSE.
[2018-10-26] VITALS (9 sets, daily range): BP systolic 112–131; BP diastolic 55–75
--- NOTE | 2018-10-26 00:24 | NUR ---
Dr. Philip Gale here to see patient. New order received.
[2018-10-26] MEDS ORDERED: FUROSEMIDE INJ 10 MG/ML 2 ML VIAL IV STA (01:02)
[2018-10-26] MEDS: SODIUM CHLORIDE 0.9% 1000ML 1,000 ML IV SCH ×3 (02:07→18:02)
--- NOTE | 2018-10-26 05:04 | NUR ---
Patient informed about recommended medical procedure---PICC line insertion. Patient verbalized understanding. Patient voluntarily signed "Disclosure and Consent" form.
[2018-10-26] MEDS: METRONIDAZOLE 500MG/NS 100ML 100 ML IV SCH ×3 (05:14→22:00)
[2018-10-26] MEDS ORDERED: ALBUMIN 25% 25GM 100ML 0.25 GM/ML BTL IV SCH (06:00)
[2018-10-26] MEDS: ALBUMIN 25% 25GM 100ML 100 ML IV SCH ×3 (06:30→18:00)
--- NOTE | 2018-10-26 07:10 | NUR ---
RCD PT AT BED PT IS ALERT AND ORIENTED PT RESTING ON BED NO SIGNS OF ANY DISTRESS NOTED GARDNER DRAINING BY GRAVITY IV PATENT BED LOW AND LOCKED CALL LIGHT IN REACH
[2018-10-26] MEDS: INSULIN LISPRO 100 UNIT/1 ML 3ML VIAL SQ SCH ×4 (07:30→20:43)
[2018-10-26] MEDS: BALSAM PERU/CASTOR OIL 60 GM OINT...G. TP SCH (09:00)
[2018-10-26] MEDS: ZINC SULFATE 220 MG CAP PO SCH (09:00)
[2018-10-26] MEDS: ASCORBIC ACID 500 MG TAB PO SCH ×2 (09:00→16:59)
[2018-10-26] MEDS: IRON SUCROSE 100 MG in SODIUM CHLORIDE 0.9% 100 ML 100 ML IV SCH (09:00)
[2018-10-26] MEDS: MULTIVITAMINS/MINERALS TAB PO SCH (09:00)
[2018-10-26] MEDS: RISPERIDONE 1 MG TAB PO SCH ×2 (09:00→20:39)
[2018-10-26] MEDS: RIVAROXABAN 15 MG TABLET PO SCH ×2 (09:00→16:58)
[2018-10-26] MEDS: COLLAGENASE 5 GM TUBE TOP SCH (09:00)
--- NOTE | 2018-10-26 09:00 | NUR ---
TALKED ABOUT NG TUBE SHE SAID HER MOTHER COMING TO SEE HER IN THE AFTER NOON THEN SHE WILL TAKE DECISION
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
[2018-10-26] MEDS: CEFEPIME 1GM/NS 0.9% 50 ML 50 ML IV SCH ×2 (11:30→23:30)
--- NOTE | 2018-10-26 11:30 | NUR ---
PT HAD BIG BOWEL MOVEMENT PAGED AND NOTIFIED DR Carol HARTMAN GOT NEW ORDERS FOR KUB
--- NOTE | 2018-10-26 13:32 | NUR ---
PT WENT TO PROCEDURE IN SAFE CONDITION
--- NOTE | 2018-10-26 14:20 | NUR ---
pt back after procedure a/c to radiology pt refused the picc line pt wanted to do picc line at the bed side they said someone coming to do that
--- NOTE | 2018-10-26 14:48 | Diagnostic Imaging Report ---
Exam: KUB - 2 views Clinical History: Small bowel obstruction. Comparison: KUB 10/25/2018. Findings: Again noted are dilated small bowel loops, measuring up to 3.9 cm. Air is seen throughout the colon and rectum which are nondistended. Surgical clips project over the upper abdomen. There is diffuse osteopenia. Vertebral body findings are better characterized on CT abdomen/pelvis from 10/24/2018. Small right pleural effusion with patchy opacities at lung bases. Impression: Similar appearance of partial small bowel obstruction. Small right pleural effusion with patchy opacities at the lung bases, which may reflect atelectasis or pneumonia in the appropriate clinical setting. Signed by: Dr. Priscilla Pacheco MD on 10/26/2018 2:44 PM
--- NOTE | 2018-10-26 15:00 | NUR ---
SINCE PT REFUSED PICC LINE AT RADIOLOGY, NOTIFIED THE CLIENT APPLICATION SUPPORT ENGINEER SHE SAID SABI GOING TO DO ON TOMORROW
--- NOTE | 2018-10-26 18:41 | NUR ---
PT RESTING ON BED. BEDSIDE REPORT GIVEN TO THE ONCOMING NURSE.
--- NOTE | 2018-10-26 20:01 | NUR ---
Nutrition Intervention Note RD Recommendation(s) for Physician: - Rec to draw CMP, CBC, Phos, Mg, and Triglycerides prior to initiation of PN -If GI tract is not ok to use, rec to initiate central PN @45mL/hr (30% dextrose,15% AA) with addition of 25g lipids daily, providing 160g dextrose, 81g protein, and total of 1100kcal. - meeting 81% of est calorie and 100% of est protein needs - BG and insulin management per MD - Check Mg and Phos daily with BMP if/when on TPN. Check TG weekly. - Rec MVi w/minerals, Vit C 500mg BID, Zinc Sulfate 220mg for 10 days to support wound healing - If GI tract is ok to use, rec ADAT to goal of ADA 1800 with Glucerna BID Plan of Care: RD following, monitoring for tolerance and adequacy, TPN Nutrition reason for involvement: MD consult TPN RD Assessment 10/26: RD consulted for initiation of TPN. Pt was out of the room for PICC placement. Per RN Carolyn, pt had a large BM this AM. KUB today showed similar appearance of partial small bowel obstruction. Pt didnt want a NGT placed. Currently NPO. Spoke with Dr. Gale regarding RD rec. Plan to initiate TPN tomorrow night. TPN order was placed in chart. Will continue to monitor and follow. 10/24: Pt seen for follow up. Pt confused at time of visit. Pt now on CL diet, CT of abdomen this am- pt with bowel obstruction per RN. Previously eating 75-100% of meals prior to diet downgrade. Will monitor and continue to follow. 10/20 Chart reviewed. 87yo F, who was admitted from [facility] for [facility]. Pt was discussed during rounds. Kalexate was given for elevated potassium level. Wound care following for pressure wound. Renal function has improved. No on pressor. +NS and abx. Unable to obtain hx from pt due to AMS. Pt has some severe signs of muscle and fat loss per observation. Per RN Rama, pt was eating good this AM with ~75% meal intake. RD paged Dr. Case for orders at 1342. Will continue to monitor and follow. Principal Problems/Diagnoses: sepsis, AMS, stomach distention PMH: HTN, DM, Bipolar GI: LBM 10/26 Skin: - Left Hip- Stage III -Pressure Ulcer- Present On Admission - Sacral - Stage IV- Pressure Ulcer- Present On Admission. - Lumbar Mid Spine- Deep Tissue Injury- Present On Admission. Labs: No lab on 10/26 10/24: na 142, K 4.2, BUN 21, Cr 0.57, Gluc 84 (10/20) Na 135 L, K 5.9 H, BUN 90 H, Creat 1.95 H, Glucose 192 212 H Meds: NaCl, Albumin, abx Ht: 63in Wt: 98lb; 120lb BMI: 17.4kg/m2 IBW: 115lb Malnutrition Evaluation (10/20) The patient does not meet criteria for a specified degree of malnutrition at this time. Will re-evaluate at follow-up as appropriate. Energy intake: N/A Weight loss: N/A Fat loss: Severe hollow orbital region, protrusion of clavicle Muscle loss: Severe protrusion of clavicle and acromion process, depression of temporal Supporting Evidence: Fluid accumulation: unable to evaluate Functional Status: unable to evaluate Nutrition Prescription (Diet Order): NPO Estimated Nutritional Needs: Calories: 1350 1575kcal (30-35kcal/kg/d) Weight used: CBW Protein: 68 90g (1.5-2g/kg/d) Weight used: CBW Diet Adequacy: Not meeting calorie needs, Not meeting protein needs Diet Education Needs Assessment: Diet education indicated, but patient not appropriate for education at this time. Nutrition Care Level: high Nutrition Diagnosis: Increased protein needs related to altered skin integrity as evidenced by stage III L hip ulcer, stage IV sacral ulcer, and DTI on lumbar spine. Inadequate oral intake related to SBO as evidenced pt requiring PN as main source of nutrition. Goal: Patient will meet 75-100% of estimated needs by follow up Progress: Not progressing Interventions: Composition, Rate, Route, IVF, Multivitamin/mineral supplement therapy Monitoring/Evaluation: Total energy intake, Total protein intake, Formula/ solution, Labs, Daily Weight Signed: Georgina Conroy MS, RD, LD
[2018-10-26] MEDS: ACETAMINOPHEN 325 MG TAB PO PRN (20:52)
[2018-10-27] VITALS (8 sets, daily range): BP systolic 108–164; BP diastolic 60–77
[2018-10-27] MEDS ORDERED: FUROSEMIDE INJ 10 MG/ML 4 ML VIAL IV ONE (01:15)
[2018-10-27] MEDS: SODIUM CHLORIDE 0.9% 1000ML 1,000 ML IV SCH ×3 (02:02→18:07)
--- NOTE | 2018-10-27 04:02 | NUR ---
THE PATIENT IS MILDLY AGITATED, WANTING TO TAKE OFF BLANKETS, SOFT BOOTS AND GET OFF BED. PATIENT WAS REORIENTED AND REPOSITIONED. ATIVAN 0.5MG ADMINISTERED.
[2018-10-27] MEDS: METRONIDAZOLE 500MG/NS 100ML 100 ML IV SCH ×3 (05:38→22:00)
[2018-10-27 05:46] LABS: BASOPHILS % 0.2 % (0.0-1.0); EOSINOPHILS # (AUTO) 0.3 (0.0-0.4); LYMPHOCYTES # (AUTO) 5.4 (1.0-3.2); LYMPHOCYTES % 32.3 % (18.0-39.1); MEAN CORPUSCULAR HEMOGLOBIN 30.9 pg (28-32); MEAN CORPUSCULAR HGB CONC 31.4 g/dL (31-35); MEAN CORPUSCULAR VOLUME 98.7 fL (81-99); MONOCYTES # (AUTO) 2.2 (0.2-0.8); MONOCYTES % 12.9 % (4.4-11.3); NEUTROPHILS # (AUTO) 8.6 (2.1-6.9); NEUTROPHILS % 51.9 % (38.7-80.0); PLATELET COUNT 474 x10e3/uL (140-360); RED BLOOD COUNT 2.23 x10e6/uL (3.6-5.1); RED CELL DISTRIBUTION WIDTH 16.1 % (11.7-14.4)
[2018-10-27 05:51] LABS: HEMOGLOBIN 6.9 g/dL (12.0-16.0)
--- NOTE | 2018-10-27 06:03 | NUR ---
NOTIFIED DR. MELGAR OF CRITICAL VALUE. HEMOGLOBIN 6.9. HE REQUESTED TO GIVE A UNIT OF BLOOD. I WILL PUT THE ORDER IN FOR A TYPE AND CROSS WITH A UNIT OF BLOOD.
[2018-10-27 06:09] LABS: ALANINE AMINOTRANSFERASE 8 IU/L (0-55); ALBUMIN 2.8 g/dL (3.5-5.0); ALKALINE PHOSPHATASE 114 IU/L (40-150); ANION GAP 9.2 mmol/L (8-16); BLOOD UREA NITROGEN 8 mg/dL (7-26); BUN/CREATININE RATIO 14 (6-25); CALCIUM 8.5 mg/dL (8.4-10.2); CARBON DIOXIDE 24 mmol/L (22-29); CHLORIDE 114 mmol/L (98-107); CREATININE, SERUM 0.59 mg/dL (0.57-1.11); EST GLOMERULAR FILTRATION RATE > 60 ML/MIN (60-); GLUCOSE 106 mg/dL (74-118); POTASSIUM 3.2 mmol/L (3.5-5.1); SODIUM 144 mmol/L (136-145)
[2018-10-27] MEDS ORDERED: SODIUM CHLORIDE 0.9% 250ML 250 ML IV ONE (06:15)
[2018-10-27] MEDS: ALBUMIN 25% 25GM 100ML 100 ML IV SCH ×4 (06:39→17:35)
[2018-10-27] MEDS: INSULIN LISPRO 100 UNIT/1 ML 3ML VIAL SQ SCH ×4 (07:30→21:00)
--- NOTE | 2018-10-27 07:45 | NUR ---
Notified Dr. Case about potassium 3.2. New order received.
[2018-10-27] MEDS ORDERED: POTASSIUM CHLORIDE 20MEQ/100ML 200 ML IV ONE (08:00)
[2018-10-27] MEDS: ZINC SULFATE 220 MG CAP PO SCH (09:00)
[2018-10-27] MEDS: RISPERIDONE 1 MG TAB PO SCH ×2 (09:00→21:30)
[2018-10-27] MEDS: RIVAROXABAN 15 MG TABLET PO SCH ×2 (09:00→17:35)
[2018-10-27] MEDS: ASCORBIC ACID 500 MG TAB PO SCH ×2 (09:00→17:35)
[2018-10-27] MEDS: MULTIVITAMINS/MINERALS TAB PO SCH (09:00)
--- NOTE | 2018-10-27 10:25 | Diagnostic Imaging Report ---
EXAM: CHEST XRAY LINE PLACEMENT DATE: 10/27/2018 9:51 AM INDICATION:PICC placement COMPARISON: Chest x-ray, 10/24/2018 FINDINGS: Lines and tubes: Interval placement of right PICC. Catheter extends to the lower right atrial level. Heart size normal. Bilateral pleural effusions have increased since last exam, small on the left and moderate on the right. Patchy consolidation has developed in the upper lobes, greater on the right. Upper abdomen unremarkable with numerous surgical clips seen in the central abdomen. No acute bony abnormality. Findings were discussed with FIDELIA Madrid, who placed the PICC line, on 10/27/2018 at 10:15 AM. IMPRESSION: 1. Interval placement of right PICC extending to the mid to lower right atrial level. According to PACS measurement on the image, this is approximately 4 to 5 cm below the expected location of the cavoatrial junction. 2. Increased bilateral pleural effusions, greater on the right. 3. Increased consolidation in the upper lobes, greater on the right. Signed by: Dr. Howard Oh M.D. on 10/27/2018 10:22 AM
[2018-10-27] MEDS: CEFEPIME 1GM/NS 0.9% 50 ML 50 ML IV SCH ×2 (11:30→23:30)
[2018-10-27] MEDS: IRON SUCROSE 100 MG in SODIUM CHLORIDE 0.9% 100 ML 100 ML IV SCH (11:45)
--- NOTE | 2018-10-27 11:54 | Diagnostic Imaging Report ---
EXAM: CHEST XRAY LINE PLACEMENT, AP Portable DATE: 10/27/2018 Time stamp on exam: 11:33 AM INDICATION: Line placement COMPARISON: 10/27/2018 chest x-ray performed at 10:07 AM FINDINGS: LINES/TUBES: Right-sided PICC has been withdrawn and now overlies the SVC. LUNGS: Patchy bilateral airspace opacities and increased pulmonary vascularity. PLEURA: Unchanged right greater than left pleural effusions. HEART AND MEDIASTINUM: Normal size and contour. BONES AND SOFT TISSUES: No acute findings. IMPRESSION: 1. PICC has been withdrawn and is appropriate in location. 2. Unchanged airspace opacities with effusions. Signed by: Dr. Rodrigue Henriquez DO on 10/27/2018 11:51 AM
[2018-10-27] MEDS ORDERED: SODIUM CHLORIDE 0.9% 250ML 250 ML ONE (13:05)
--- NOTE | 2018-10-27 14:54 | Progress Note ---
DATE: 10/27/2018 Psychiatric Progress Note SUBJECTIVE: The patient was evaluated and events noted. The patient is in the room. She is awake. Currently she receives Ativan p.r.n. IV last night 4:00 a.m. The patient is going through a lot of medical issues. Her hemoglobin is low and she is needing a unit of blood today transfusion. She is intermittently getting Risperdal due to current n.p.o. She did generous last night, however, but did not receive anything today as she was drowsy per nursing staff. The patient is not able to cooperate to the confusion. ASSESSMENT: Schizoaffective disorder, bipolar type. PLAN: 1. Continue Risperdal 1 mg p.o. q.12 hours. 2. Continue with p.r.n. IV Ativan. 3. Continue p.r.n. Risperdal. 4. Continue p.r.n. Haldol for agitation. 5. Monitor for agitation. 6. Discussed with nursing staff. Dictated by Tracy Garcia PA-C Eliza Archer MD QTV/MODL /[id number]
[2018-10-27] MEDS: BALSAM PERU/CASTOR OIL 60 GM OINT...G. TP SCH (18:00)
[2018-10-27] MEDS: COLLAGENASE 5 GM TUBE TOP SCH (18:00)
[2018-10-27] MEDS ORDERED: MAGNESIUM HYDROXIDE 30 ML UDC PO ONE ×3 (19:45→22:00)
--- NOTE | 2018-10-27 19:47 | NUR ---
Dr. Philip Gale paged regarding TPN order by the Dietary Dept. Dr. Gale stated to put the TPN order on hold until tomorrow to see how well she tolerates her Full liquid diet . An order was received for administration of Milk of Magnesia. Will continue to monitor patient's bowel movement.
--- NOTE | 2018-10-27 20:51 | NUR ---
Patient noted to be wheezing and coughing. Dr. Christian Livingston notified. New orders received.
[2018-10-27] MEDS ORDERED: GUAIFENESIN 200 MG/10 ML UDC PO PRN (21:00)
[2018-10-28] VITALS (10 sets, daily range): BP systolic 131–162; BP diastolic 62–86
--- NOTE | 2018-10-28 02:22 | NUR ---
Dr. Philip Gale here to see patient. An order for 40 mg IV Lasix received.
--- NOTE | 2018-10-28 02:23 | NUR ---
Patient had a large (liquid) bowel movement post Milk of Magnesia administration.
[2018-10-28] MEDS ORDERED: FUROSEMIDE INJ 10 MG/ML 4 ML VIAL IV ONE ×2 (02:30→23:15)
[2018-10-28] MEDS: SODIUM CHLORIDE 0.9% 1000ML 1,000 ML IV SCH ×3 (02:47→18:07)
[2018-10-28] MEDS ORDERED: POTASSIUM CHLORIDE 20 MEQ TAB CR PO STA (02:48)
[2018-10-28] MEDS: ALBUTEROL SULF 0.083% NEB SOLN 3 ML NEB NEB PRN ×4 (03:30→20:46)
[2018-10-28 05:23] LABS: BASOPHILS # (AUTO) 0.1 (0.0-0.1); BASOPHILS % 0.3 % (0.0-1.0); EOSINOPHILS # (AUTO) 0.2 (0.0-0.4); EOSINOPHILS % 1.2 % (0.0-6.0); HEMATOCRIT 28.2 % (34.2-44.1); LYMPHOCYTES # (AUTO) 5.1 (1.0-3.2); LYMPHOCYTES % 28.6 % (18.0-39.1); MEAN CORPUSCULAR HEMOGLOBIN 31.1 pg (28-32); MEAN CORPUSCULAR HGB CONC 31.9 g/dL (31-35); MEAN CORPUSCULAR VOLUME 97.6 fL (81-99); MONOCYTES % 11.1 % (4.4-11.3); NEUTROPHILS # (AUTO) 10.4 (2.1-6.9); NEUTROPHILS % 58.2 % (38.7-80.0); PLATELET COUNT 437 x10e3/uL (140-360); RED BLOOD COUNT 2.89 x10e6/uL (3.6-5.1); RED CELL DISTRIBUTION WIDTH 18.6 % (11.7-14.4)
[2018-10-28 05:44] LABS: ANION GAP 13.8 mmol/L (8-16); BLOOD UREA NITROGEN 6 mg/dL (7-26); BUN/CREATININE RATIO 10 (6-25); CALCIUM 8.7 mg/dL (8.4-10.2); CARBON DIOXIDE 25 mmol/L (22-29); CHLORIDE 111 mmol/L (98-107); CREATININE, SERUM 0.63 mg/dL (0.57-1.11); EST GLOMERULAR FILTRATION RATE > 60 ML/MIN (60-); GLUCOSE 160 mg/dL (74-118); POTASSIUM 3.8 mmol/L (3.5-5.1); SODIUM 146 mmol/L (136-145)
[2018-10-28] MEDS: METRONIDAZOLE 500MG/NS 100ML 100 ML IV SCH ×3 (06:20→22:00)
[2018-10-28] MEDS: INSULIN LISPRO 100 UNIT/1 ML 3ML VIAL SQ SCH ×5 (07:30→21:00)
--- NOTE | 2018-10-28 08:49 | Diagnostic Imaging Report ---
EXAM: ABDOMEN-1VIEW (KUB), DATE: 10/28/2018 5:00 AM INDICATION: Small bowel obstruction. Sepsis. COMPARISON: 10/26/2018. FINDINGS: LINES/TUBES: None BOWEL PATTERN: Interval decrease in dilatation of multiple bowel loops. Increased density throughout the abdomen may represent ascites. SOFT TISSUES: Multiple clips projected on the upper abdomen. LUNG BASES: Bibasilar atelectasis. BONES: No acute osseous abnormality. IMPRESSION: Interval decrease in small bowel dilatation. Signed by: Dr. Irene Wetzel M.D. on 10/28/2018 6:55 AM
--- NOTE | 2018-10-28 08:53 | Diagnostic Imaging Report ---
EXAMINATION: CHEST SINGLE (PORTABLE) INDICATION: ^possible aspiration, pneumonia ^[id number] ^[id number] COMPARISON: Chest radiograph 10/27/2018 FINDINGS: AP view TUBES and LINES: Interval retraction of the right PICC with tip now overlying the mid SVC. LUNGS: Lungs are well inflated. Persistent bilateral lower lobes, right greater than left reticular nodular consolidations. Right upper lobe airspace opacity has improved. PLEURA: Small right pleural effusion, unchanged. HEART AND MEDIASTINUM: The cardiomediastinal silhouette is unremarkable.. BONES AND SOFT TISSUES: No acute osseous lesion. Soft tissues are unremarkable. UPPER ABDOMEN: No free air under the diaphragm. IMPRESSION: Bilateral multifocal reticular nodular opacities, mildly decreased in the right upper lobe is suggestive of multifocal pneumonia or aspiration. Signed by: Dr. Cynthia Abraham M.D. on 10/28/2018 8:50 AM
[2018-10-28] MEDS: ZINC SULFATE 220 MG CAP PO SCH (09:00)
[2018-10-28] MEDS: BALSAM PERU/CASTOR OIL 60 GM OINT...G. TP SCH (09:00)
[2018-10-28] MEDS: ASCORBIC ACID 500 MG TAB PO SCH ×2 (09:00→16:04)
[2018-10-28] MEDS: MULTIVITAMINS/MINERALS TAB PO SCH (09:00)
[2018-10-28] MEDS: COLLAGENASE 5 GM TUBE TOP SCH (09:00)
[2018-10-28] MEDS: RISPERIDONE 1 MG TAB PO SCH ×2 (09:00→21:30)
[2018-10-28] MEDS: RIVAROXABAN 15 MG TABLET PO SCH ×2 (10:00→16:04)
--- NOTE | 2018-10-28 10:04 | Progress Note ---
DATE: SUBJECTIVE: The patient is here for small bowel obstruction, currently complaining of some shortness of breath, positive for some abdominal pain, has been advanced to full liquid diet. OBJECTIVE: VITAL SIGNS: Temperature is 97.1, pulse of 107, respirations 17, blood pressure is 144/79, and pulse oximetry of 93%. HEENT: Normocephalic, atraumatic. No icterus present. The patient is cachectic. CVS: S1 and S2 normal. Regular rate and rhythm. LUNGS: Bilateral coarse rhonchi present. ABDOMEN: Distended, but soft. EXTREMITIES: 2+ edema bilaterally upper and lower extremities. LABORATORY VALUES: [place] [address], hemoglobin of 9.0 up from 6.9, hematocrit 28.2, platelet count is 437, left shift present. The patient's chemistries show sodium of 146, potassium of 3.8, BUN is 6, creatinine 0.63. Glucoses have been running from 120s to 180s. MICROBIOLOGY: Positive for wound culture, positive for Klebsiella and urine culture with Leonarda krusei. ASSESSMENT: 1. Small-bowel obstruction. The patient has had NG tube, but has been removed repeatedly by the patient. The patient is on clear liquid diet. Bowel sounds are very sluggish. We will continue to monitor the patient with clear liquid diet. 2. Possible aspiration versus pneumonic process. At this time, we will check chest x-ray and follow with the patient. 3. Cachexia. We will need IV fluids to be continued, but if chest x-ray shows volume overload, we will have to discontinue that. Possible parenteral nutrition will be instituted if the patient does not tolerate diet. 4. The patient with leukocytosis and left shift with small-bowel obstruction. PLAN: Continue the patient on cefepime and check her white count tomorrow. The patient with history of delirium. The patient is currently on risperidone and lorazepam as needed and is followed by also with Psychiatry. Further recommendation per clinical course. The patient's outlook is guarded. We will continue to monitor the patient along with consultants. MD LEONARDO Brannon/BENSON /[id number]
[2018-10-28] MEDS: CEFEPIME 1GM/NS 0.9% 50 ML 50 ML IV SCH ×2 (10:45→23:30)
[2018-10-28] MEDS: IRON SUCROSE 100 MG in SODIUM CHLORIDE 0.9% 100 ML 100 ML IV SCH (11:20)
[2018-10-28] MEDS: ACETAMINOPHEN 325 MG TAB PO PRN (22:15)
--- NOTE | 2018-10-28 23:20 | NUR ---
Patient complained of wanting a stronger medication for pain (/). Dr. Christian Livingston notified. New order received.
[2018-10-28] MEDS ORDERED: KETOROLAC TROMETHAMINE 10 MG TAB PO ONE (23:30)
--- NOTE | 2018-10-28 23:37 | NUR ---
Dr. Gale here to see patient. New orders received.
[2018-10-29] VITALS (7 sets, daily range): BP systolic 109–165; BP diastolic 58–79
--- NOTE | 2018-10-29 00:25 | NUR ---
As per Dr. Philip Gale, patient is to have one "Ensure Plus" with breakfast, lunch and dinner; and 2 'Ensure Plus' at bedtime.
[2018-10-29] MEDS: SODIUM CHLORIDE 0.9% 1000ML 1,000 ML IV SCH ×3 (02:07→16:26)
[2018-10-29] MEDS ORDERED: FUROSEMIDE INJ 10 MG/ML 4 ML VIAL IV ONE ×3 (06:00→21:30)
[2018-10-29 06:11] LABS: BASOPHILS % 0.2 % (0.0-1.0); EOSINOPHILS # (AUTO) 0.1 (0.0-0.4); EOSINOPHILS % 0.8 % (0.0-6.0); HEMATOCRIT 26.8 % (34.2-44.1); HEMOGLOBIN 8.8 g/dL (12.0-16.0); LYMPHOCYTES # (AUTO) 5.6 (1.0-3.2); LYMPHOCYTES % 32.8 % (18.0-39.1); MEAN CORPUSCULAR HEMOGLOBIN 30.9 pg (28-32); MEAN CORPUSCULAR HGB CONC 32.8 g/dL (31-35); MONOCYTES # (AUTO) 1.6 (0.2-0.8); MONOCYTES % 9.6 % (4.4-11.3); NEUTROPHILS # (AUTO) 9.5 (2.1-6.9); NEUTROPHILS % 56.1 % (38.7-80.0); PLATELET COUNT 389 x10e3/uL (140-360); RED BLOOD COUNT 2.85 x10e6/uL (3.6-5.1); RED CELL DISTRIBUTION WIDTH 17.8 % (11.7-14.4)
[2018-10-29] MEDS: ALBUTEROL SULF 0.083% NEB SOLN 3 ML NEB NEB PRN ×3 (06:30→19:11)
[2018-10-29] MEDS: METRONIDAZOLE 500MG/NS 100ML 100 ML IV SCH ×3 (06:30→22:35)
[2018-10-29 07:09] LABS: EOSINOPHILS % (MANUAL) 1 % (0-7); LYMPHOCYTES % (MANUAL) 27 % (19-48); MONOCYTES % (MANUAL) 10 % (3.4-9.0); NEUTROPHILS % (MANUAL) 57 % (40-74)
[2018-10-29 07:10] LABS: ANISOCYTOSIS S; POIKILOCYTOSIS S; RBC MORPHOLOGY COMMENT ABNORMAL; TOXIC GRANULATION SLIGHT
[2018-10-29 07:11] LABS: HOWELL-JOLLY BODIES FEW; PLATELET ESTIMATE SLIGHTLY INCREASED; PLATELET MORPHOLOGY COMMENT NORMAL
[2018-10-29] MEDS: INSULIN LISPRO 100 UNIT/1 ML 3ML VIAL SQ SCH ×4 (07:30→21:00)
--- NOTE | 2018-10-29 07:42 | NUR ---
Dr. Christian Livingston here to see patient. New orders received.
[2018-10-29] MEDS ORDERED: KETOROLAC TROMETHAMINE 10 MG TAB PO ONE (07:45)
[2018-10-29] MEDS: COLLAGENASE 5 GM TUBE TOP SCH (08:05)
[2018-10-29] MEDS: RISPERIDONE 1 MG TAB PO SCH ×2 (08:05→21:52)
[2018-10-29] MEDS: ZINC SULFATE 220 MG CAP PO SCH (08:05)
[2018-10-29] MEDS: MULTIVITAMINS/MINERALS TAB PO SCH (08:05)
[2018-10-29] MEDS: BALSAM PERU/CASTOR OIL 60 GM OINT...G. TP SCH (08:05)
[2018-10-29] MEDS: ASCORBIC ACID 500 MG TAB PO SCH ×2 (08:05→16:26)
[2018-10-29] MEDS: RIVAROXABAN 15 MG TABLET PO SCH ×2 (08:05→16:26)
--- NOTE | 2018-10-29 09:28 | Progress Note ---
DATE: SUBJECTIVE: The patient is here for small bowel obstruction. The patient is feeling better according to her. Shortness of breath is better and coughing less. OBJECTIVE: VITAL SIGNS: Temperature is 98.3, pulse of 95, respiration of 20, blood pressure is 121/67, pulse oximetry of 96% on 3 L of oxygen. HEENT: Normocephalic, atraumatic. The patient has O2 by nasal cannula. Edentulous or missing teeth. LUNGS: Positive for rhonchi. Coarse rhonchi bilaterally. ABDOMEN: Soft. Bowel sounds are positive. EXTREMITIES: No clubbing, no cyanosis, and no edema. ASSESSMENT: 1. Small bowel obstruction. The patient apparently did have multiple bowel movements yesterday. The patient will continue on clear liquid diet. 2. Aspiration pneumonia. The patient is on cefepime and metronidazole, has good coverage. Continue with breathing treatments. 3. With history of aspiration, we will go ahead and order a swallow evaluation. 4. Cachexia. 5. History of leukocytosis and left shift with obstruction. PLAN: Plan is to continue to monitor the patient. White count has been about the same of 17,000, hemoglobin of 8.8, and hematocrit of 26.8. The patient's chemistries show sodium of 146, potassium of 3.8, and BUN of 6. Glucoses have been running in the 150s to 275. We will change IV fluids today to more D5 NS. Continue to monitor the patient. Further recommendation per clinical course. Again, the patient has a guarded prognosis. Additional diagnosis includes hypernatremia. MD LEONARDO Brannon/MODL /[id number]
[2018-10-29 10:56] LABS: ALANINE AMINOTRANSFERASE 9 IU/L (0-55); ALBUMIN 2.6 g/dL (3.5-5.0); ALBUMIN/GLOBULIN RATIO 0.8 (0.8-2.0); ALKALINE PHOSPHATASE 160 IU/L (40-150); ANION GAP 9.6 mmol/L (8-16); BLOOD UREA NITROGEN < 5 mg/dL (7-26); CALCIUM 8.5 mg/dL (8.4-10.2); CARBON DIOXIDE 30 mmol/L (22-29); CHLORIDE 103 mmol/L (98-107); EST GLOMERULAR FILTRATION RATE > 60 ML/MIN (60-); GLUCOSE 245 mg/dL (74-118); POTASSIUM 3.6 mmol/L (3.5-5.1); SODIUM 139 mmol/L (136-145)
[2018-10-29 10:59] LABS: BUN/CREATININE RATIO 8 (6-25)
--- NOTE | 2018-10-29 11:10 | Diagnostic Imaging Report ---
Exam: Abdominal film Clinical History: Small bowel obstruction Comparison: KUB 10/28/2018 DISCUSSION: Frontal view of the abdomen shows normal caliber air-filled small and large bowel. Increased density is again noted throughout the abdomen, which may reflect ascites. There are no abnormal calcifications.Multiple clips project in the upper abdomen. No acute bone abnormality. Stable left basal atelectatic changes. Worsening right basilar atelectasis and likely small pleural effusion. IMPRESSION: 1. No air-filled dilated loops of small or large bowel. 2. Increased density is again seen throughout the abdomen suggesting ascites. 3. Worsening right basal atelectasis and likely small pleural effusion. The staff physician below has personally reviewed this exam on the date of dictation. Signed by: Dr. Enrique Yusuf M.D. on 10/29/2018 11:07 AM
--- NOTE | 2018-10-29 11:17 | Diagnostic Imaging Report ---
Examination: Single AP view of the chest. COMPARISON: Portable chest 10/28/2018 INDICATION: PICC line placement IMPRESSION: Exam limited by patient rotation. 1. Lines and Tubes: Interval removal of previously visualized right-sided PICC line. Interval placement of left-sided PICC line, with distal tip projecting in the proximal right atrium. Recommend retraction of approximately 3 cm. 2. No interval change in subsegmental atelectasis or scarring in the left lung, bilateral perihilar interstitial edema. Right-sided pleural effusion with associated right lower lobe atelectasis. Changes 3. Cardiomediastinal silhouette is normal. Central venous congestion. 4. No acute bony abnormalities. Signed by: Dr. Enrique Yusuf M.D. on 10/29/2018 11:13 AM
--- NOTE | 2018-10-29 12:33 | Diagnostic Imaging Report ---
Examination: Single AP view of the chest. COMPARISON: Portable chest 10/29/2018 INDICATION: Line placement IMPRESSION: 1. Lines and Tubes: Left-sided PICC line has distal tip projecting at the cavoatrial junction. 2. Otherwise no interval change Signed by: Dr. Enrique Yusuf M.D. on 10/29/2018 12:30 PM
[2018-10-29] MEDS: IRON SUCROSE 100 MG in SODIUM CHLORIDE 0.9% 100 ML 100 ML IV SCH (13:49)
[2018-10-29] MEDS: CEFEPIME 1GM/NS 0.9% 50 ML 50 ML IV SCH ×2 (13:49→23:30)
[2018-10-29] MEDS: ACETAMINOPHEN 325 MG TAB PO PRN (16:27)
--- NOTE | 2018-10-29 19:23 | NUR ---
Patient received sitting up in bed. AAO x 3. Patient had no complaints of pain. No signs of respiratory distress. Fall precautions implemented. Patient instructed to call for assistance when needed. Call light within reach.
--- NOTE | 2018-10-29 21:29 | NUR ---
Dr. Gale here to see patient. New orders received.
[2018-10-29] MEDS ORDERED: MAGNESIUM HYDROXIDE 30 ML UDC PO ONE ×2 (21:30→22:30)
--- NOTE | 2018-10-29 22:20 | NUR ---
Patient was informed of recommended medical procedure---Ultrasound of the abdomen with possible Paracentesis. Reason: Ascites. Patient verbalized understanding. Patient voluntarily signed "Disclosure and Consent" form.
[2018-10-30] VITALS (9 sets, daily range): BP systolic 110–140; BP diastolic 58–85
[2018-10-30] MEDS: SODIUM CHLORIDE 0.9% 1000ML 1,000 ML IV SCH ×3 (02:40→18:34)
[2018-10-30 05:27] LABS: BASOPHILS # (AUTO) 0.1 (0.0-0.1); BASOPHILS % 0.3 % (0.0-1.0); EOSINOPHILS # (AUTO) 0.4 (0.0-0.4); HEMATOCRIT 26.1 % (34.2-44.1); HEMOGLOBIN 8.7 g/dL (12.0-16.0); LYMPHOCYTES # (AUTO) 6.7 (1.0-3.2); MEAN CORPUSCULAR HEMOGLOBIN 31.3 pg (28-32); MEAN CORPUSCULAR HGB CONC 33.3 g/dL (31-35); MEAN CORPUSCULAR VOLUME 93.9 fL (81-99); MONOCYTES % 10.6 % (4.4-11.3); NEUTROPHILS # (AUTO) 9.5 (2.1-6.9); NEUTROPHILS % 50.7 % (38.7-80.0); PLATELET COUNT 372 x10e3/uL (140-360); RED BLOOD COUNT 2.78 x10e6/uL (3.6-5.1); RED CELL DISTRIBUTION WIDTH 17.3 % (11.7-14.4)
[2018-10-30 05:46] LABS: ANION GAP 10.4 mmol/L (8-16); BLOOD UREA NITROGEN 6 mg/dL (7-26); BUN/CREATININE RATIO 12 (6-25); CALCIUM 8.5 mg/dL (8.4-10.2); CARBON DIOXIDE 38 mmol/L (22-29); CHLORIDE 98 mmol/L (98-107); EST GLOMERULAR FILTRATION RATE > 60 ML/MIN (60-); GLUCOSE 93 mg/dL (74-118); POTASSIUM 3.4 mmol/L (3.5-5.1); SODIUM 143 mmol/L (136-145)
[2018-10-30] MEDS: METRONIDAZOLE 500MG/NS 100ML 100 ML IV SCH ×3 (05:52→21:23)
[2018-10-30] MEDS ORDERED: FUROSEMIDE INJ 10 MG/ML 4 ML VIAL IV ONE (06:00)
--- NOTE | 2018-10-30 06:45 | NUR ---
Wound dressing done per MD's orders. Patient tolerated well.
--- NOTE | 2018-10-30 07:00 | NUR ---
BEDSIDE SHIFT REPORT GIVEN BY NIGHT RN. PT DENIES NEEDS AT THIS TIME.
[2018-10-30] MEDS: ALBUTEROL SULF 0.083% NEB SOLN 3 ML NEB NEB PRN ×2 (07:15→15:42)
--- NOTE | 2018-10-30 07:15 | NUR ---
Walking rounds done. Shift report given to oncoming nurse of patient status.
[2018-10-30] MEDS: INSULIN LISPRO 100 UNIT/1 ML 3ML VIAL SQ SCH ×4 (07:30→21:30)
[2018-10-30 07:46] LABS: LYMPHOCYTES % (MANUAL) 24 % (19-48); MONOCYTES % (MANUAL) 7 % (3.4-9.0); NEUTROPHILS % (MANUAL) 69 % (40-74)
[2018-10-30 07:47] LABS: ANISOCYTOSIS SLIGHT; HYPOCHROMASIA MODERATE; PLATELET ESTIMATE ADEQUATE; PLATELET MORPHOLOGY COMMENT NORMAL; RBC MORPHOLOGY COMMENT NORMAL
--- NOTE | 2018-10-30 08:19 | Diagnostic Imaging Report ---
Exam: Limited abdominal ultrasound to evaluate for ascites History: Abdominal pain Comparison: None available Findings: Ultrasound in the four quadrants of the abdomen reveals a tiny amount of free fluid. There is an insufficient amount to aspirate. Impression: Trace abdominal ascites. Signed by: Dr. Rodrigue Henriquez DO on 10/30/2018 8:16 AM
[2018-10-30] MEDS: RISPERIDONE 1 MG TAB PO SCH ×2 (09:00→21:23)
[2018-10-30] MEDS: MULTIVITAMINS/MINERALS TAB PO SCH (09:00)
[2018-10-30] MEDS: COLLAGENASE 5 GM TUBE TOP SCH (09:00)
[2018-10-30] MEDS: IRON SUCROSE 100 MG in SODIUM CHLORIDE 0.9% 100 ML 100 ML IV SCH (09:00)
[2018-10-30] MEDS: BALSAM PERU/CASTOR OIL 60 GM OINT...G. TP SCH (09:00)
[2018-10-30] MEDS: ZINC SULFATE 220 MG CAP PO SCH (09:00)
[2018-10-30] MEDS: ASCORBIC ACID 500 MG TAB PO SCH ×2 (09:00→17:27)
[2018-10-30] MEDS: RIVAROXABAN 15 MG TABLET PO SCH ×2 (09:00→17:27)
--- NOTE | 2018-10-30 11:31 | NUR ---
ST NOTE: Pt currently NPO for CT scan and thorocentesis. Will follow pt and complete BSE when pt is able to participate. Handoff to FIDELIA Madrid
[2018-10-30] MEDS: CEFEPIME 1GM/NS 0.9% 50 ML 50 ML IV SCH ×2 (12:15→23:24)
--- NOTE | 2018-10-30 12:36 | NUR ---
Nutrition Intervention Note RD Recommendation(s) for Physician: - ADAT to GI Soft, 1800 ADA per MD discretion - Recommend Glucerna Shake BID - Recommend Thaddeus 1 packet BID to promote wound healing - BG and insulin management per MD - Please check BMP with Mg and Phos in am, replace low lytes as needed- pt at risk for refeeding Nutrition reason for involvement: Follow up RD Assessment 10/30: Pt seen for follow-up, discussed at am rounds. No TPN currently, pt was NPO this am- discussed advancement of diet with RN, now on full liquids. Pt having BMs, per MD notes SBO resolving. Paracentesis and swallow eval canceled this am per RN. Pt remains confused, however denies N/V or abdominal pain. Will monitor and continue to follow. 10/26: RD consulted for initiation of TPN. Pt was out of the room for PICC placement. Per RN Carolyn, pt had a large BM this AM. KUB today showed similar appearance of partial small bowel obstruction. Pt didnt want a NGT placed. Currently NPO. Spoke with Dr. Gale regarding RD rec. Plan to initiate TPN tomorrow night. TPN order was placed in chart. Will continue to monitor and follow. 10/24: Pt seen for follow up. Pt confused at time of visit. Pt now on CL diet, CT of abdomen this am- pt with bowel obstruction per RN. Previously eating 75-100% of meals prior to diet downgrade. Will monitor and continue to follow. 10/20 Chart reviewed. 87yo F, who was admitted from [facility] for AMS. Pt was discussed during rounds. Kalexate was given for elevated potassium level. Wound care following for pressure wound. Renal function has improved. No on pressor. +NS and abx. Unable to obtain hx from pt due to AMS. Pt has some severe signs of muscle and fat loss per observation. Per RN Rama, pt was eating good this AM with ~75% meal intake. RD paged Dr. Case for orders at 1342. Will continue to monitor and follow. Principal Problems/Diagnoses: sepsis, AMS, stomach distention PMH: HTN, DM, Bipolar GI: LBM 10/30 Skin: - Left Hip- Stage III -Pressure Ulcer- Present On Admission - Sacral - Stage IV- Pressure Ulcer- Present On Admission. - Lumbar Mid Spine- Deep Tissue Injury- Present On Admission. Labs: 10/30: Na 143, K 3.4, Cl 98. CO2 38, BUN 6, Cr 0.5, gluc 245, POC Gluc 204-275, Ca 8.5, no Mg or Phos No lab on 10/26 10/24: na 142, K 4.2, BUN 21, Cr 0.57, Gluc 84 (10/20) Na 135 L, K 5.9 H, BUN 90 H, Creat 1.95 H, Glucose 192 212 H Meds: NaCl, abx, lispro Ht: 63in Wt: 98lb; 120lb BMI: 17.4kg/m2 IBW: 115lb Malnutrition Evaluation (10/20) The patient does not meet criteria for a specified degree of malnutrition at this time. Will re-evaluate at follow-up as appropriate. Energy intake: N/A Weight loss: N/A Fat loss: Severe hollow orbital region, protrusion of clavicle Muscle loss: Severe protrusion of clavicle and acromion process, depression of temporal Supporting Evidence: Fluid accumulation: unable to evaluate Functional Status: unable to evaluate Nutrition Prescription (Diet Order): Full liquids Estimated Nutritional Needs: Calories: 1350 1575kcal (30-35kcal/kg/d) Weight used: CBW Protein: 68 90g (1.5-2g/kg/d) Weight used: CBW Diet Adequacy: Not meeting calorie needs, Not meeting protein needs Diet Education Needs Assessment: Diet education indicated, but patient not appropriate for education at this time. Nutrition Care Level: high Nutrition Diagnosis: Increased protein needs related to altered skin integrity as evidenced by stage III L hip ulcer, stage IV sacral ulcer, and DTI on lumbar spine. Inadequate oral intake related to SBO as evidenced pt requiring PN as main source of nutrition. Goal: Patient will meet 75-100% of estimated needs by follow up Progress: Not progressing Interventions: CHO, fiber modified diet, Liquid supplement, Multivitamin/mineral supplement therapy Monitoring/Evaluation: Total energy intake, Total protein intake, Modified diet, Supplement, Labs, Daily Weight Signed: Antonia Thomas RD, LD, [facility]
--- NOTE | 2018-10-30 14:11 | NUR ---
WOUND CARE CONSULTATION FOLLOW UP Patient admitted from [facility] to ER for Distended Abdomen and altered mental status. DX: Sepsis, AMS LABS: WBC 18.72 HGB8.7 HCT26.1 NEUT%50.[address] Shook on case for IV ABX Management. Patient on IV cefepime and Flagyl. Wound Culture reveals ESBL+ of Sacral Wound. X-ray- Pelvis - Inconclusive. -@ [facility]- Bone Biopsy performed and was + for Osteomyelitis. Wound Care Consulted For Sacral Ulcer and Left Hip Ulcers. PATIENT VISIT: Patient is pleasantly confused. Attempts to assist with redirection. Maximiliano Score = 12 Strict PUP Active Alternating Pressure Air Mattress in place and set to current patient weight - Distended Abdomen with Labia Swelling. - Sacral full thickness ulceration and palpable bone. Periwound edges are friable and denuded toward rectum. - Indwelling Avendano catheter in place - Left Hip - Partial thickness ulcer with 90 granulation and 10% slough and fibrin. - Mid Lower back- annular shaped purple non-blanching ulcer, detached skin with boggy base. - Bilateral Heels intact. - Onychogryphotic nails to bilateral hallux. - No Pressure ulcers to bilateral feet. IMPRESSION: - Left Hip- Stage III -Pressure Ulcer- Present On Admission - Sacral - Stage IV- Pressure Ulcer- Present On Admission. - Lumbar Mid Spine- Deep Tissue Injury- Present On Admission. RECOMMENDATION: 1. Left Hip- Stage III -Pressure Ulcer- Present On Admission -Cleanse wound with NS and 4x4 gauze - Apply Maxsorb AG+ and Cover with Allevyn Foam Sacrum Dressing Daily. 2. Sacral - Stage IV- Pressure Ulcer- Present On Admission.\ -Cleanse wound with NS and 4x4 gauze - Apply Maxsorb AG+ and Cover with Allevyn Foam Sacrum Dressing Daily. 3. Lumbar Mid Spine- Deep Tissue Injury- Present On Admission. -Cleanse wound with NS and 4x4 gauze - Apply Venelex and Cover with Allevyn Foam Sacrum Dressing Daily - Continue Alternating Pressure Air Mattress and settings according to patient current weight. - Bilateral Heel Protectors / Offload Heels with Pillows. - Turn and Reposition Every 2 Hours using turning clock schedule. Thank you for consulting with Wound Care. Addendum: 10/30/18 at 1417 by Trino Contreras RN Amended: Links added.
--- NOTE | 2018-10-30 19:00 | NUR ---
BEDSIDE REPORT GIVEN TO CHINCHILLA MACHINE OPERATOR RN
--- NOTE | 2018-10-30 21:30 | NUR ---
Spoke with Dr. Case, ok to give toradol once for pain.
[2018-10-30] MEDS ORDERED: KETOROLAC TROMETHAMINE 10 MG TAB PO NR (21:45)
[2018-10-31] VITALS: BP 91/51
[2018-10-31] MEDS ORDERED: FUROSEMIDE INJ 10 MG/ML 4 ML VIAL IV ONE ×3 (01:00→23:45)
[2018-10-31] MEDS ORDERED: POTASSIUM CHLORIDE 20 MEQ TAB CR PO STA ×2 (01:02→23:59)
--- NOTE | 2018-10-31 01:03 | NUR ---
Dr. Gale here for rounding, orders received.
[2018-10-31 04:45] VITALS: BP 113/56
[2018-10-31] MEDS: METRONIDAZOLE 500MG/NS 100ML 100 ML IV SCH (06:07)
[2018-10-31] MEDS: SODIUM CHLORIDE 0.9% 1000ML 1,000 ML IV SCH ×2 (06:07→10:07)
[2018-10-31] MEDS: KETOROLAC TROMETHAMINE 10 MG TAB PO PRN ×2 (06:08→18:32)
--- NOTE | 2018-10-31 07:00 | NUR ---
BEDSIDE SHIFT REPORT RECEIVED FROM CAMILA MISTRY. PT DENIES NEEDS AT THIS TIME.
[2018-10-31] MEDS: INSULIN LISPRO 100 UNIT/1 ML 3ML VIAL SQ SCH ×4 (07:30→21:45)
[2018-10-31] MEDS: ALBUTEROL SULF 0.083% NEB SOLN 3 ML NEB NEB PRN ×4 (08:06→23:01)
[2018-10-31 08:34] VITALS: BP 128/78
[2018-10-31 09:00] VITALS: BP 128/78
[2018-10-31] MEDS: RIVAROXABAN 15 MG TABLET PO SCH ×2 (09:42→18:26)
[2018-10-31] MEDS: ASCORBIC ACID 500 MG TAB PO SCH ×2 (09:42→18:26)
[2018-10-31] MEDS: ZINC SULFATE 220 MG CAP PO SCH (09:42)
[2018-10-31] MEDS: IRON SUCROSE 100 MG in SODIUM CHLORIDE 0.9% 100 ML 100 ML IV SCH (09:42)
[2018-10-31] MEDS: MULTIVITAMINS/MINERALS TAB PO SCH (09:42)
[2018-10-31] MEDS: RISPERIDONE 1 MG TAB PO SCH ×2 (09:42→21:55)
--- NOTE | 2018-10-31 10:22 | Progress Note ---
DATE: SUBJECTIVE: No new changes overnight. She still has some episodes of confusion. OBJECTIVE: VITAL SIGNS: Temperature 98.3, pulse 101, blood pressure 94/68, and saturations 95%. GENERAL: In no apparent distress CARDIOVASCULAR: Regular rate and rhythm. LUNGS: Decreased breath sounds. ABDOMEN: Distended with no peritoneal signs. Positive bowel sounds. EXTREMITIES: Show no clubbing or cyanosis. 3+ edema. NEUROLOGIC: Moves all extremities times 4. ASSESSMENT: 1. Sepsis secondary to osteomyelitis. Continue with antibiotic coverage per dr diehl. 2. Stage IV decubitus. Continue with current care with wound care and Dr. Ratliff. 3. Anemia. Continue to monitor. 4. Leukocytosis. Continue to monitor. 5. Confusion. 6. History of bipolar. Continue her current medications per Psych. Please see hospital chart for full details. MD MAR Paredes/BENSON /[id number] [facility]ious
[2018-10-31 12:28] VITALS: BP 118/59
[2018-10-31] MEDS: BALSAM PERU/CASTOR OIL 60 GM OINT...G. TP SCH (13:18)
--- NOTE | 2018-10-31 15:00 | NUR ---
CASE MANAGEMENT ASSESSMENT Animal Sitter to bedside to discuss plan of care with patient/family. CM/SW role and care transitions discussed. Anticipated discharge plan discussed along with duration of care. CM/SW discussed patients right to make decisions in care. CM/SW work hours given. Pt not confused today. answering questions appropriately Patient lives: at [facility] Admit/Transfer: thru ED Hospital/ER visits since last admit: was last a [facility] then transferred to [facility] 1 week prior to coming here POA/Emergency contact: friend Ari Cuevas [phone], brother Rashawn David [phone] Current/Previous Home Health: none PCP/Follow-up Care: states her PCP is Dr. Haroon Sunshine. Dr. Li follows at [facility] Current/Previous DME: states was using wheelchair. Has not walked in at least 6 months Medications (referring to index hospitalization or the first time you were in the hospital) a. Were changes made in your medications when you were in the hospital on [date of index hospitalization]? n/a b. Did you understand the changes? n/a c. Were you able to obtain your new medications right away? n/a d. Were you able to take your medications like the doctor wanted you to? n/a e. Did the hospital give you an accurate, easy to understand list of medications when you left? n/a Scale of 1-10 how comfortable does patient feel with disease management in outpatient setting: Other Services: none Employment Status: unemployed Areas of Concerns: sepsis, AMS, SBO Referral Needs: SNF Education Needs: medical management IMM/HEATH given and signed (if applicable): n/a Goal for discharge: return to [facility]. Choice letter signed for [facility] and placed in chart. Copy to pt's transition of care folder. Pt states she eventually wants to return to her own home, but states she will need assistance. CM informed her that there will be a SW at [facility] that can assist once she is able to discharge from facility. CM/SW left business card at the bedside with contact information. Name and number was also written on the patients whiteboard. Patient verbalized understanding of discussion. CM will follow-up with ongoing discharge and transition of care needs.
--- NOTE | 2018-10-31 19:00 | NUR ---
PT HAD 3 BOTTLE OF GLUCERNA ORAL INTAKE FOR THE SHIFT. TOTAL 711 ML
--- NOTE | 2018-10-31 19:00 | NUR ---
BEDSIDE SHIFT REPORT GIVEN TO SEISMOGRAPH SUPERVISOR RN. PT DENIES NEEDS AT THIS TIME.
[2018-10-31 20:00] VITALS: BP 99/55
[2018-10-31] MEDS: MEROPENEM 1GM 100 ML IV SCH (22:32)
[2018-11-01] VITALS (8 sets, daily range): BP systolic 107–138; BP diastolic 59–69
[2018-11-01] MEDS ORDERED: POTASSIUM CHLORIDE 20 MEQ TAB CR PO SCH (01:00)
--- NOTE | 2018-11-01 03:22 | NUR ---
10/31/18:1900Received patient lying in bed, patient is alert, introduced self to patient, safety and fall precautions maintained as per hospital protocol: bed in lowest position and locked, needed items beside bed and call rich placed close to patient, patient instructed to use it to call nurses for any assistance needed, patient verbalized understanding. patient is currently stable, will continue to monitor.
[2018-11-01] MEDS: MEROPENEM 1GM 100 ML IV SCH ×3 (04:51→21:34)
[2018-11-01 05:40] LABS: BASOPHILS # (AUTO) 0.1 (0.0-0.1); BASOPHILS % 0.4 % (0.0-1.0); EOSINOPHILS # (AUTO) 0.3 (0.0-0.4); EOSINOPHILS % 1.6 % (0.0-6.0); HEMATOCRIT 24.2 % (34.2-44.1); LYMPHOCYTES # (AUTO) 5.5 (1.0-3.2); LYMPHOCYTES % 32.2 % (18.0-39.1); MEAN CORPUSCULAR HEMOGLOBIN 31.6 pg (28-32); MEAN CORPUSCULAR HGB CONC 33.1 g/dL (31-35); MEAN CORPUSCULAR VOLUME 95.7 fL (81-99); MONOCYTES # (AUTO) 1.8 (0.2-0.8); MONOCYTES % 10.5 % (4.4-11.3); NEUTROPHILS # (AUTO) 9.2 (2.1-6.9); NEUTROPHILS % 54.7 % (38.7-80.0); PLATELET COUNT 333 x10e3/uL (140-360); RED BLOOD COUNT 2.53 x10e6/uL (3.6-5.1); RED CELL DISTRIBUTION WIDTH 17.2 % (11.7-14.4); RETICULOCYTE % 1.8 % (0.8-2.2)
[2018-11-01] MEDS: KETOROLAC TROMETHAMINE 10 MG TAB PO PRN ×2 (06:00→15:28)
[2018-11-01 06:16] LABS: ALANINE AMINOTRANSFERASE 6 IU/L (0-55); ALBUMIN 2.6 g/dL (3.5-5.0); ALBUMIN/GLOBULIN RATIO 0.8 (0.8-2.0); ALKALINE PHOSPHATASE 184 IU/L (40-150); ANION GAP 9.1 mmol/L (8-16); BLOOD UREA NITROGEN 10 mg/dL (7-26); BUN/CREATININE RATIO 16 (6-25); CALCIUM 8.6 mg/dL (8.4-10.2); CARBON DIOXIDE 40 mmol/L (22-29); CHLORIDE 90 mmol/L (98-107); CREATININE, SERUM 0.62 mg/dL (0.57-1.11); EST GLOMERULAR FILTRATION RATE > 60 ML/MIN (60-); GLUCOSE 157 mg/dL (74-118); POTASSIUM 4.1 mmol/L (3.5-5.1); SODIUM 135 mmol/L (136-145)
[2018-11-01] MEDS: ALBUTEROL SULF 0.083% NEB SOLN 3 ML NEB NEB PRN ×2 (06:41→19:50)
[2018-11-01] MEDS: INSULIN LISPRO 100 UNIT/1 ML 3ML VIAL SQ SCH ×4 (07:30→21:30)
--- NOTE | 2018-11-01 07:31 | NUR ---
patient endorsed to next shift for continuity of care.
[2018-11-01] MEDS ORDERED: FUROSEMIDE INJ 10 MG/ML 4 ML VIAL IV ONE ×2 (08:00→22:45)
[2018-11-01] MEDS: BALSAM PERU/CASTOR OIL 60 GM OINT...G. TP SCH (09:00)
[2018-11-01] MEDS: RISPERIDONE 1 MG TAB PO SCH ×2 (09:37→21:34)
[2018-11-01] MEDS: MULTIVITAMINS/MINERALS TAB PO SCH (09:37)
[2018-11-01] MEDS: IRON SUCROSE 100 MG in SODIUM CHLORIDE 0.9% 100 ML 100 ML IV SCH (09:37)
[2018-11-01] MEDS: ZINC SULFATE 220 MG CAP PO SCH (09:38)
[2018-11-01] MEDS: ASCORBIC ACID 500 MG TAB PO SCH ×2 (09:38→17:40)
[2018-11-01] MEDS: RIVAROXABAN 15 MG TABLET PO SCH ×2 (09:38→17:40)
--- NOTE | 2018-11-01 11:39 | NUR ---
FAXED CLINICALS TO [facility] AT [phone]
--- NOTE | 2018-11-01 12:15 | NUR ---
JEMMA SPOKE TO DR. MELGAR REGARDING PATIENT PLAN OF CARE AND DISCHARGE PLAN. DR. MELGAR INFORMED THAT PATIENT DOES NOT HAVE BIOPROCESSING MANUFACTURING TECHNICIAN ACUTE CARE BENEFITS. ASKED TO START A SNF EVAL INSTEAD FOR PLACEMENT. DR. MELGAR AGREED TO INITIATE SNF EVAL. PENDING INSURANCE AUTH. PER DR. MELGAR, PATIENT TO BE READY FOR DISCHARGED IN 2-3 DAYS. MD INFORMED AUTH WILL ONLY TAKE 1-2 DAYS.
--- NOTE | 2018-11-01 14:40 | NUR ---
Nutrition Intervention Note RD Recommendation(s) for Physician: - Continue GI Soft, 1800 ADA if no risk of aspiration; diet texture per CHOREOGRAPHY DIRECTOR - Rec Glucerna TID to increase protein-calorie intake as medically appropriate - Recommend Thaddeus 1 packet BID to promote wound healing - MBS pending; If PO is not ok, please consult for PN Nutrition reason for involvement: Follow up RD Assessment 11/01: Abd US showed trace ascites. MBS pending. Visited pt in the room. Pt was started on GI soft diet today and ate ~25% of lunch. Pt stated I havent ate for dayS and it hurts when I eat. No complains of nausea or vomiting. LBM 11/01 (soft formed stool). Nursing has been giving pt Ensure; pt was able to tolerate Ensure and asked for more. Pt has some missing teeth but refused diet texture modification. Pt denied any swallowing difficulty. Will continue to monitor and follow. 10/30: Pt seen for follow-up, discussed at am rounds. No TPN currently, pt was NPO this am- discussed advancement of diet with RN, now on full liquids. Pt having BMs, per MD notes SBO resolving. Paracentesis and swallow eval canceled this am per RN. Pt remains confused, however denies N/V or abdominal pain. Will monitor and continue to follow. 10/26: RD consulted for initiation of TPN. Pt was out of the room for PICC placement. Per RN Carolyn, pt had a large BM this AM. KUB today showed similar appearance of partial small bowel obstruction. Pt didnt want a NGT placed. Currently NPO. Spoke with Dr. Gale regarding RD rec. Plan to initiate TPN tomorrow night. TPN order was placed in chart. Will continue to monitor and follow. 10/24: Pt seen for follow up. Pt confused at time of visit. Pt now on CL diet, CT of abdomen this am- pt with bowel obstruction per RN. Previously eating 75-100% of meals prior to diet downgrade. Will monitor and continue to follow. 10/20 Chart reviewed. 87yo F, who was admitted from snf for AMS. Pt was discussed during rounds. Kalexate was given for elevated potassium level. Wound care following for pressure wound. Renal function has improved. No on pressor. +NS and abx. Unable to obtain hx from pt due to AMS. Pt has some severe signs of muscle and fat loss per observation. Per RN Rama, pt was eating good this AM with ~75% meal intake. RD paged Dr. Case for orders at 1342. Will continue to monitor and follow. Principal Problems/Diagnoses: sepsis, AMS, stomach distention PMH: HTN, DM, Bipolar GI: LBM 11/01 Skin: - Left Hip- Stage III -Pressure Ulcer- Present On Admission - Sacral - Stage IV- Pressure Ulcer- Present On Admission. - Lumbar Mid Spine- Deep Tissue Injury- Present On Admission. Labs: (11/01) Na 135 L, Glucose 157 160 H 10/30: Na 143, K 3.4, Cl 98. CO2 38, BUN 6, Cr 0.5, gluc 245, POC Gluc 204-275, Ca 8.5, no Mg or Phos No lab on 10/26 10/24: na 142, K 4.2, BUN 21, Cr 0.57, Gluc 84 (10/20) Na 135 L, K 5.9 H, BUN 90 H, Creat 1.95 H, Glucose 192 212 H Meds: insulin, xarelto, zinc sulfate, vitamin C, MVi w/ minerals Ht: 63in Wt: 98lb; 120lb;107lb BMI: 17.4kg/m2 IBW: 115lb Malnutrition Evaluation (10/20) The patient does not meet criteria for a specified degree of malnutrition at this time. Will re-evaluate at follow-up as appropriate. Energy intake: N/A Weight loss: N/A Fat loss: Severe hollow orbital region, protrusion of clavicle Muscle loss: Severe protrusion of clavicle and acromion process, depression of temporal Supporting Evidence: Fluid accumulation: unable to evaluate Functional Status: unable to evaluate Nutrition Prescription (Diet Order): GI soft Estimated Nutritional Needs: Calories: 1350 1575kcal (30-35kcal/kg/d) Weight used: CBW Protein: 68 90g (1.5-2g/kg/d) Weight used: CBW Diet Adequacy: Not meeting calorie needs, Not meeting protein needs Diet Education Needs Assessment: Diet education indicated, but patient not appropriate for education at this time. Nutrition Care Level: mod Nutrition Diagnosis: Increased protein needs related to altered skin integrity as evidenced by stage III L hip ulcer, stage IV sacral ulcer, and DTI on lumbar spine. Inadequate oral intake related to SBO as evidenced pt requiring PN as main source of nutrition. Goal: Patient will meet 75-100% of estimated needs by follow up Progress: progressing Interventions: CHO, fiber modified diet, Liquid supplement, Multivitamin/mineral supplement therapy Monitoring/Evaluation: Total energy intake, Total protein intake, Modified diet, Supplement, Labs, Daily Weight Signed: Georgina Conroy, MS, RD, LD
--- NOTE | 2018-11-01 15:37 | NUR ---
PT ACCEPTED AT [facility] [address], [place] [address] CALL REPORT TO [phone] WELSH CAN GO BACK TOMORROW MORNING 1ST THING
[2018-11-01] MEDS ORDERED: DIPHENHYDRAMINE HCL 25 MG CAP PO PRN (22:45)
[2018-11-02] VITALS (8 sets, daily range): BP systolic 93–113; BP diastolic 53–62
[2018-11-02] MEDS ORDERED: FUROSEMIDE INJ 10 MG/ML 4 ML VIAL IV ONE (06:00)
[2018-11-02] MEDS: MEROPENEM 1GM 100 ML IV SCH ×2 (06:05→13:52)
--- NOTE | 2018-11-02 07:00 | NUR ---
BEDSIDE ROUNDS COMPLETE NO DISTRESS NOTED, UPDATED ON POC VOICED UNDERSTANDING, GARDNER TO BSD WITH YELLOW URINE NOTED, NO OTHER CO VOCIED CALL LIGHT IN REACH WILL CONTINUE TO MONITOR
[2018-11-02] MEDS: ALBUTEROL SULF 0.083% NEB SOLN 3 ML NEB NEB PRN (07:10)
[2018-11-02] MEDS: INSULIN LISPRO 100 UNIT/1 ML 3ML VIAL SQ SCH ×3 (07:30→16:30)
--- NOTE | 2018-11-02 07:56 | Diagnostic Imaging Report ---
PROCEDURE:X-RAY MODIFIED BARIUM SWALLOW COMPARISON:None. INDICATIONS:Altered mental status DISCUSSION:Fluoroscopic examination was performed in conjunction with speech pathology, during swallowing of a variety of thin and thick liquid consistencies. Fluoroscopy time: 1.29 minutes Total dose: 2.99 mGy CONCLUSION:No penetration or aspiration. Please see the report from speech pathology for complete details. Rodrigue Henriquez D.O. Dictated by: Rodrigue Henriquez D.O. on 11/02/2018 at 7:57 Electronically approved by: Rodrigue Henriquez D.O. on 11/02/2018 at 7:57
[2018-11-02] MEDS: RIVAROXABAN 15 MG TABLET PO SCH ×2 (08:15→17:01)
[2018-11-02] MEDS: RISPERIDONE 1 MG TAB PO SCH (08:15)
[2018-11-02] MEDS: MULTIVITAMINS/MINERALS TAB PO SCH (08:16)
[2018-11-02] MEDS: ASCORBIC ACID 500 MG TAB PO SCH ×2 (08:16→17:00)
[2018-11-02] MEDS: ZINC SULFATE 220 MG CAP PO SCH (08:16)
[2018-11-02] MEDS: IRON SUCROSE 100 MG in SODIUM CHLORIDE 0.9% 100 ML 100 ML IV SCH (08:36)
--- NOTE | 2018-11-02 10:30 | Progress Note ---
DATE: 10/30/2018 Psychiatric Progress Note SUBJECTIVE: The patient evaluated and events noted. The patient is doing better. She is alert, awake, and oriented to situation. She is still paranoid and delusional. Believes people are trying to hurt her. She denies any suicidal ideation. Denies any homicidal ideation. She denies any side effects from medications. ASSESSMENT: Schizoaffective disorder, bipolar type. PLAN: 1. Continue Risperdal 1 mg p.o. q.12. 2. Continue p.r.n. IV Ativan. 3. Continue p.r.n. Risperdal. 4. Continue p.r.n. Haldol. 5. Monitor for agitation, psychosis. Dictated by Tracy Garcia PA-C Eliza Archer MD QTV/MODL /[id number]
[2018-11-02] MEDS: BALSAM PERU/CASTOR OIL 60 GM OINT...G. TP SCH (11:00)
--- NOTE | 2018-11-02 15:50 | Progress Note ---
DATE: 11/02/2018 Psychiatric Progress Note SUBJECTIVE: The patient evaluated and events noted. The patient is in the room. . She denies any depression, denies anxiety. She denies any hallucination. She denies any suicidal ideation. She is less paranoid. She denies any side effects from medication. As per nursing staff, the patient has been accepted to a intermediate facility. She may be discharged today. ASSESSMENT: Schizoaffective disorder, bipolar type. PLAN: 1. Continue Risperdal 1 mg p.o. q.12. 2. Continuous Risperdal p.r.n. 3. Continue Haldol p.r.n. 4. Monitor for psychosis. Dictated by Tracy Garcia PA-C Eliza Archer MD QTV/MODL /[id number]
--- NOTE | 2018-11-03 07:39 | Discharge Summary ---
DISCHARGE DIAGNOSES: 1. Sepsis secondary to osteomyelitis of the sacrum. 2. Stage IV decubitus prior to admission. 3. Severe protein malnutrition. 4. Small bowel obstruction, resolved. 5. Hypertension. 6. Diabetes. 7. Bipolar disorder. HISTORY OF PRESENT ILLNESS AND HOSPITAL COURSE: See hospital chart for full details. The patient is a lady, who apparently is living by herself in a fdc/hotel where apparently the patient does not move at all and therefore presented with altered mental status, severe sepsis, secondary to osteomyelitis of the sacrum, secondary to stage IV decubitus. The patient brought herself by just sitting around too much due to her most likely bipolar disorder, it is what the patient stated to me, so we brought her to the ICU, put on initially vasopressors, IV antibiotics, seen by Surgery and Infectious Disease as well as even Psychiatry for bipolar disorder. She has evidence of severe protein malnutrition. During her fluid resuscitation, the patient at this time more edematous as expected due to her low protein state, and then she did develop a small bowel obstruction, where initially an NG tube was placed. The patient self-removed it herself. Refusing future NG-tube placement is to the patient. The small bowel obstruction did resolve, where she is then able to start with p.o. intake, which she was doing well with. The patient continue to improve with her hemodynamics. At the time of discharge, the patient was transferred to the fdc for continued IV antibiotics, wound care therapy and increased p.o. intake as well as continued medical care and psychiatric care. Unfortunately, the patient's prognosis is extremely poor due to her underlying comorbidities as she brought on herself. Please see hospital chart for full details. MD MAR Paredes/BENSON /[id number]
== END 2018-11-02 17:43 | DRG 871 ==
LOC: ER 15:55 → ICU 22:50 → MED/SURG2 10-21 22:28
PROVIDERS: ADMIT Internal Medicine; ATTEND Internal Medicine
PROC: 02HV33Z Insertion of Infusion Device into Superior Vena Cava, Percutaneous Approach (ICD-10-PCS; 2018-10-19)
PROC: 30243N1 Transfusion of Nonautologous Red Blood Cells into Central Vein, Percutaneous Approach (ICD-10-PCS; 2018-10-26)
PROC: 02HV33Z Insertion of Infusion Device into Superior Vena Cava, Percutaneous Approach (ICD-10-PCS; principal; 2018-10-27)
PROC: 02HV33Z Insertion of Infusion Device into Superior Vena Cava, Percutaneous Approach (ICD-10-PCS; 2018-10-29)
DX: A41.9 Sepsis, unspecified organism (principal); E43 Unspecified severe protein-calorie malnutrition; G93.41 Metabolic encephalopathy; J69.0 Pneumonitis due to inhalation of food and vomit; M86.8X8 Other osteomyelitis, other site; K56.609 Unspecified intestinal obstruction, unspecified as to partial versus complete obstruction; N17.9 Acute kidney failure, unspecified; E87.1 Hypo-osmolality and hyponatremia; Z68.1 Body mass index [BMI] 19.9 or less, adult; M48.54XA Collapsed vertebra, not elsewhere classified, thoracic region, initial encounter for fracture; R18.8 Other ascites; E11.69 Type 2 diabetes mellitus with other specified complication; Z79.4 Long term (current) use of insulin; E11.622 Type 2 diabetes mellitus with other skin ulcer; L98.4 Non-pressure chronic ulcer of skin, not elsewhere classified; F31.9 Bipolar disorder, unspecified; F25.0 Schizoaffective disorder, bipolar type; E87.5 Hyperkalemia; B96.1 Klebsiella pneumoniae [K. pneumoniae] as the cause of diseases classified elsewhere; Z16.12 Extended spectrum beta lactamase (ESBL) resistance; R65.20 Severe sepsis without septic shock
CPT/HCPCS: 36415; 36569; 36584; 51700; 71045; 72170; 74018; 74019; 74177; 74230; 74470; 76705; 80048; 80053; 80202; 81001; 82550; 82553; 82607; 82728; 82746; 82805; 82948; 83540; 83605; 83690; 83735; 84466; 84484; 85025; 85045; 85610; 86850; 86900; 86920; 87040; 87045; 87071; 87086; 87186; 87205; 87493; 93005; 94640; 99285; J0610; J0692; J0696; J1756; J1940; J2060; J3370; J3480; J7030; J7050; J7799; P9016; P9047; Q9967

== ENCOUNTER → 2018-10-19 | Emergency (ER) | payer OTHER ==
[~2018-10-19] MED LIST: ACETAMINOPHEN325 M1 PO; AMLODIPINE BESY10 MG PO; ASCORBIC ACID500 MG PO; ASPIRIN81 MG PO; BACTRIM DS TAB1 EACH PO; CARVEDILOL3.125 MG PO; LACTULOSE20 GM/30 M PO; LANTUS 3ML100 UNITS/ SQ; LYRICA50 MG PO; MAGNESIUM OXID400 MG PO; NOVOLOG100 UNIT/1 SQ; RISPERIDONE1 MG PO; SENNA LAX8.6 MG PO; ULTRAM50 MG PO; VANCOMYCIN1 GM/250 M IV; XARELTO10 MG PO
--- OUTSIDE RECORDS SUMMARY | 2018-10-19 22:30 | XMS REPORT | Continuity of Care Document ---
Author Author [facility] Interface Address Unknown Phone Unavailable Problems Problem Status Onset Date Classification Date Reported Comments Source ALTERED MENTAL STATUS Active 06/13/2018 [facility] ALTERED MENTAL STATUS, PNEUMONIA, UTI Active 06/13/2018 [facility] ALTERED MENTAL STATUS, UNSPECIFIED Active [facility] PNEUMONIA, UNSPECIFIED ORGANISM Active [facility] URINARY TRACT INFECTION, SITE NOT SPECIF Active [facility] Medications Medication Details Route Status Patient Instructions Ordering Provider Order Date Source Allergies, Adverse Reactions, Alerts Substance Category Reaction Severity Reaction type Status Date Reported Comments Source Immunizations Immunization Date Given Site Status Last Updated Comments Source Results Order Name Results Value Reference Range Date Interpretation Comments Source Chest 1view DX Chest 1view DX Study: Chest 1view DX portable 06/21/2018 0636 hours Clinical Indication: - pleural effusion and pneumonia; Comparison: Chest 06/17/2018 FINDINGS: Cardiac size is normal. Aortic atherosclerosis is noted. Extensive pleural and parenchymal opacity in the right hemithorax is grossly stable. There is volume loss in the left hemithorax with pleural and parenchymal scarring at the base. No definite vascular congestion is seen. Feeding tube has been removed. IMPRESSION: No significant change. SL: [id number] 06/21/2018 - - Read by: Daquan Carbajal MD Dictated Date/time: 06/21/18 07:29 Electronically Signed by: Daquan Carbajal MD 06/21/18 07:31 FINAL REPORT [facility] Chest 1view DX Chest 1view DX Chest single view 06/17/2018 HISTORY: Pleural effusion Comparison is made to 06/16/2018 FINDINGS: Left pleural effusion has decreased. Left base atelectasis/infiltrate is unchanged. Right upper lobe infiltrate is decreased. New right base atelectasis/infiltrate is not. Heart size is normal. Aorta is within normal limits. Dobbhoff tube tip is in the mid stomach. IMPRESSION: 1. Decreased left pleural effusion. 2. Decreased right upper lobe infiltrate. 3. New right base atelectasis/infiltrate. 4. Well-positioned Dobbhoff tube. SL: [id number] 06/17/2018 - - Read by: Faustino Shin MD Dictated Date/time: 06/18/18 06:42 Electronically Signed by: Faustino Shin MD 06/18/18 06:43 FINAL REPORT [facility] Chest 1view DX Chest 1view DX Study: Chest 1view DX portable 06/16/2018 0620 hours Clinical Indication: - Pneumonia; Comparison: Chest and CT chest 06/14/2018 FINDINGS: Feeding tube extends into the mid stomach but its terminal point is not evident. Cardiac size is normal. Extensive opacity in the upper half of the right hemithorax is again identified. It appears slightly less confluent. Small left pleural effusion has developed, associated with minor lower lobe atelectasis. No vascular congestion is seen. SL: [id number] 06/16/2018 - - Read by: Daquan Carbajal MD Dictated Date/time: 06/16/18 07:48 Electronically Signed by: Daquan Carbajal MD 06/16/18 07:50 FINAL REPORT [facility] Abdomen AP DX Abdomen AP DX Abdomen AP DX Female 62 years old Clinical Indication: - Confirm dobhoff placement; Comparison: None FINDINGS: The AP supine view of the abdomen shows a non-obstructive bowel gas pattern.. There is no abnormal dilatation of bowel loops. There is no pneumatosis or mass effect. A weighted feeding tube is present in the stomach. There are multiple compression deformities suspected in the lower thoracic and lumbar spine as well as generalized decreased bone mineral density. Numerous surgical lori are visualized overlying the abdomen. IMPRESSION: 1. Weighted feeding tube in the mid stomach region. 2. Extensive osseous abnormalities. Consider severe osteoporosis or possibly multiple myeloma. SL: [id number] 06/15/2018 - - Read by: Dsemond Agrawal MD Dictated Date/time: 06/15/18 17:57 Electronically Signed by: Desmond Agrawal MD 06/15/18 18:01 FINAL REPORT [facility] Brain wo contrast CT Brain wo contrast CT EXAM: CT BRAIN WITHOUT CONTRAST DATE: 06/14/2018 6:08 [employer] INDICATION: - eval mental; status. ADDITIONAL INFORMATION: . COMPARISON: None. TECHNIQUE: Routine axial CT images of the brain were obtained. IV contrast: None. CT imaging performed at this location utilizes radiation dose optimization techniques which include one or more of the following: -Automated exposure control -Adjustment of the mA and/or kV according to patient size -Use of iterative reconstruction technique CT Radiation Dose DLP 1158.67 mGy-cm FINDINGS: Non-contrast images of the head demonstrate no edema, hemorrhage, mass lesion or other acute intracranial abnormality. Mild chronic small vessel ischemic change. Decker-white matter distinction is preserved. The ventricles are normal. The basal cisterns and sulci are normal in size. Mild mucosal thickening of the ethmoid air cells. Chronic complete opacification of the left sphenoid sinus. The mastoid air cells are clear. IMPRESSION: 1. No definite acute infarct or intracranial hemorrhage detected. 2. Mild chronic small vessel ischemic change. If there is further concern for intracranial pathology or acute stroke, MRI of the brain may be performed for complete assessment. SL: [id number] 06/14/2018 - - Read by: Amor Moore MD Dictated Date/time: 06/14/18 07:19 Electronically Signed by: Amor Moore MD 06/14/18 07:20 FINAL REPORT [facility] Chest wo contrast CT Chest wo contrast CT Study: CT CHEST WITHOUT CONTRAST Clinical Indication: Pneumonia Comparison: None Technique: Axial images with sagittal and coronal reconstructions were obtained without contrast. CT imaging performed at this location utilizes radiation dose optimization techniques which include one or more of the following: -Automated exposure control -Adjustment of the mA and/or kV according to patient size -Use of iterative reconstruction technique CT Radiation Dose DLP 253.29 mGy-cm FINDINGS: Motion artifact is noted and streak artifacts are produced by inclusion of the upper extremities in the scan plane. Extensive dense right upper lobe consolidation with air bronchograms is consistent with pneumonia. No definite central obstructing mass is identified. There are additional rounded areas of consolidation within the right upper lobe and there is thickening of the major fissure. The lungs are emphysematous with interstitial scarring. There are small bilateral pleural effusions, larger on the right, associated with minor lower lobe atelectasis. Moderate coronary artery calcifications are identified. There is no gross hilar or mediastinal adenopathy. No pericardial effusion is seen. Calcified bilateral thyroid nodules are noted. Limited images of the upper abdomen are remarkable only for indeterminate postoperative changes. IMPRESSION: 1. Limited examination. 2. Extensive dense right upper lobe consolidation consistent with pneumonia. 3. Emphysema with interstitial scarring. 4. Moderate coronary artery calcifications. 5. Small pleural effusions with minor lower lobe atelectasis. A repeat examination following intravascular contrast would be more accurate in excluding malignancy. SL: [id number] 06/14/2018 - - Read by: Daquan Carbajal MD Dictated Date/time: 06/14/18 09:34 Electronically Signed by: Daquan Carbajal MD 06/14/18 09:41 FINAL REPORT [facility] Retroperitoneal Complete US Retroperitoneal Complete US Study: Retroperitoneal Complete US Clinical Indication: - kidney failure; creatinine 0.83 Comparison: None FINDINGS: KIDNEY: The right kidney measures 10.6 x 4.3 x 5.5 cm. The left kidney measures 9.7 x 4.7 x 5.3 cm. Each kidney demonstrates a normal sonographic texture. No mass, hydronephrosis, calculus or perinephric fluid collection is identified. BLADDER: Slightly distended thick-walled bladder is noted. Bladder volume or post void image was not obtained. Aortic atherosclerosis noted. Its bifurcation and the common iliac arteries are obscured. Visualized inferior vena cava appears normal. IMPRESSION: 1. Normal upper urinary tracts. 2. Bladder wall thickening. SL: [id number] 06/14/2018 - - Read by: Daquan Carbajal MD Dictated Date/time: 06/14/18 09:45 Electronically Signed by: Daquan Carbajal MD 06/14/18 09:54 FINAL REPORT [facility] Chest 1view DX Chest 1view DX Clinical Indication: - Undifferentiated Sepsis Comparison: None FINDINGS: Single frontal radiograph of the chest is performed. Heart size is within normal limits. Mediastinal contours are unremarkable. Confluent airspace disease of the right mid and right upper lung. Left lung remains clear. No pleural effusion or pneumothorax. Bones are markedly osteopenic. IMPRESSION: Nonspecific confluent airspace disease of the right mid to upper lung. Correlate clinically for pneumonia. Short-term interval follow-up, after appropriate therapy, recommended to ensure resolution and exclude an underlying neoplastic process. If the abnormalities persist following therapy, dedicated contrast enhanced chest CT should be performed for further assessment. SL: [id number] 06/14/2018 - - Read by: Nick Ricardo MD Dictated Date/time: 06/14/18 00:37 Electronically Signed by: Nick Ricardo MD 06/14/18 00:39 FINAL REPORT [facility] Vital Signs Vital Sign Value Date Comments Source Encounters Location Location Details Encounter Type Encounter Number Reason For Visit Attending Provider ADM Date DC Date Status Source Procedures Procedure Code Date Perfomer Comments Source
== END | disposition home or self-care (01) ==
LOC: ER 22:28
DX: R14.0 Abdominal distension (gaseous) (principal)
CPT/HCPCS: 36415; 82948